=== PATIENT | male | born 1955 | race Caucasian/White ===

== ENCOUNTER 2022-10-04 10:14 | Emergency (ER) | payer MEDICARE, MEDICAID, SELFPAY ==
[2022-10-04 10:33] VITALS: BP 145/73; PULSE 84; RESP 16; TEMP 36.9; O2SAT 100; BMI 18.3
--- NOTE | 2022-10-04 10:48 | ED.GENADULT ---
HPI - General Adult General Time Seen by Provider: 10:48 Date Seen: 10/04/22 Chief complaint: Lower Extremity Swelling Stated complaint: L calf pain, possible blood clot Time Seen by Provider: 10/04/22 10:48 Source: patient, RN notes reviewed and old records reviewed Mode of arrival: ambulatory Limitations: no limitations History of Present Illness HPI narrative: Patient is a 66-year-old male with concern of possible blood clot in his leg. He he had left SFA stent 03/07/2022 due to PAD. He reportedly was admitted 09/03/2022 with 2 days prior of increased left leg pain and numbness that was worsening. He had stopped his Plavix for couple months prior to that. He had a venous Doppler in the ER that was negative, ultrasound showed long segment SFA stent occlusion. He was put on IV heparin, vascular surgery was consulted who recommended IR guided thrombolysis which she had on 09/03 with catheter removal 09/04. He was loaded with Plavix 09/05 and transition to 75 mg daily worked up for iron deficiency anemia which she had been noncompliant outpatient. His admission hemoglobin was 9, platelets 137. Was complaining of some chronic GI symptoms. He did get an EGD on September 05 showing hiatal hernia but otherwise normal. He is yet to get an outpatient colonoscopy. He has chronic tobacco use, alcohol use. He is maintained on 81 mg aspirin and is taking is 75 mg Plavix. He also takes Crestor 40 mg daily. He notes he had a cramp couple nights ago. After that his calf was hurting, feels like he is more swollen in this leg. He denies any trauma. He continues smoking. Denies any difficulty breathing, no chest pain, no fevers chills. He absolutely has no numbness tingling or type of pain like he had with the arterial stent occlusion. He is worried that the stent possibly occluded again. Related Data Home Medications Medication Instructions Recorded Confirmed aspirin 81 mg chewable tablet tab PO 10/04/22 clopidogrel 75 mg tablet 75 mg PO DAILY 10/04/22 10/04/22 famotidine 20 mg tablet 20 mg PO DAILY 10/04/22 10/04/22 ferrous sulfate 325 mg (65 mg PO 10/04/22 iron) tablet (FeroSul) rosuvastatin 40 mg tablet 40 mg PO QPM 10/04/22 10/04/22 Allergies Allergy/AdvReac Type Severity Reaction Status Date / Time No Known Drug Allergies Allergy Verified 10/04/22 10:36 Review of Systems Status of ROS: Reports: 6 or more systems reviewed and unremarkable except as noted in History and below Exam Const: Vital Signs, click to edit/add: Vital Signs - 24 hr 10/04/22 10:33 Temperature 98.4 F Pulse Rate [Left P ulse Oximeter] 84 Respiratory Rate 16 Blood Pressure [Le ft Upper Arm] 145/73 H Pulse Oximetry 100 Oxygen Delivery Me thod Room Air Patient watched ambulating back into his room, normal gait. Documenting provider has reviewed patient's vital signs: yes Common normals: no apparent distress, oriented x3, no limitations and alert General appearance: frail appearing Nutritional appearance: thin HENMT: Common normals: normocephalic, head/scalp atraumatic and hearing grossly normal bilaterally Head and scalp: normocephalic and atraumatic Eye: Common normals: PERRL, EOMs intact bilaterally and conjunctivae normal Conjunctiva: conjunctiva(e) normal Pupil: PERRL Neck & C-Spine: Common normals: full ROM, no lymphadenopathy, supple and no meningeal signs Resp: Common normals: normal respiratory effort, no retractions, no use of accessory muscles and clear to auscultation bilaterally Auscultation: clear to auscultation bilaterally Cardio: Common normals: regular rate, regular rhythm, S1 normal heart sound, S2 normal heart sound, no gallops, no clicks and no murmurs Rate: regular rate Rhythm: regular rhythm Heart sounds: S1 normal and S2 normal GI: Common normals: Normal to inspection, nondistended, normoactive bowel sounds present, soft to palpation, non-tender, no hepatosplenomegaly and no masses Palpation: soft and no hepatosplenomegaly Extremity: Other: Socks were taken off both of his feet. His feet are symmetrically warm. He has faint dorsalis pedis pulses that are symmetric. He has normal light touch sensation in both of his extremities. He does have some mild swelling in this left lower extremity, maybe trace pretibial pitting edema. There is an ecchymotic area around the proximal portion of his distal 3rd of the tibia and fibula. It does not extend circumferentially, there is an area along the anterior lateral tibia where there is no bruising. Above this there may be just a little erythema that seems diffuse throughout the tissues. He complains that his calf hurts while in I press on it. There is no joint line tenderness, no popliteal fossa mass. Neuro: Common normals: oriented x3 Sensorium/orientation: alert Meningeal signs: no meningeal signs Course Course Hospital Course: Will obtain imaging of his venous and arterial systems in this left lower extremity. I am doubtful that he has a arterial blockage as his leg is nice and warm, he has none of the numbness tingling. I am hopeful that he does not have a DVT but there is some tenderness and complaints of pain in his left posterior calf. Possibilities also include hematoma, trauma that he might not remember given his alcohol use, doubt cellulitis from my clinical exam. Obtain labs and venous and arterial ultrasounds. Reevaluation(s) Reevaluation #1: Reviewed with patient that we are awaiting the radiology over read. The preliminary per the drop machine operator is no DVT, patent arteries. I did subsequently add on an x-ray of his tib-fib. I wonder if he just had some tearing of a vessel when he had the muscle cramp and has some bruising/hematoma. You certainly can see bruising around the proximal portion of the distal 3rd of his tib-fib/leg. He is having no numbness tingling like he had when he had the blockage of his graft before. Time: 12:20 Reevaluation #2: Reviewed with patient and his sister via phone who had to leave normal workup. You definitely can see bruising on his leg, not sure if he just had a little trauma when he had a muscle cramp and jumped up, he does have friable vessels; he also could have bumped his leg causing this trauma. In any event, no evidence any thrombotic vascular issues, occlusions at this time. I find no evidence for cellulitis. I recommend ongoing conservative management. His sister states that they have a follow-up appointment on Thursday already scheduled, I would like them to keep this so that is leg could be looked at, hopefully they can discuss smoking cessation there is well. Time: 12:53 Vital Signs Vital signs: Initial Vital Signs Temperature 98.4 F 10/04/22 10:33 Temperature Source Temporal Artery Scan 10/04/22 10:33 Pulse Rate 84 10/04/22 10:33 Pulse Rhythm Regular 10/04/22 10:33 Pulse Strength 3+ Normal 10/04/22 10:33 Respiratory Rate 16 10/04/22 10:33 Blood Pressure 145/73 H 10/04/22 10:33 Blood Pressure Mean 97 10/04/22 10:33 Blood Pressure Position Sitting 10/04/22 10:33 Pulse Oximetry 100 10/04/22 10:33 Oxygen Delivery Method Room Air 10/04/22 10:33 Vital Signs Temperature 98.4 F 10/04/22 10:33 Pulse Rate 84 10/04/22 10:33 Respiratory Rate 16 10/04/22 10:33 Blood Pressure 145/73 H 10/04/22 10:33 Pulse Oximetry 100 10/04/22 10:33 Oxygen Delivery Method Room Air 10/04/22 10:33 Temperature 98.4 F 10/04/22 10:33 Pulse Rate 84 10/04/22 10:33 Respiratory Rate 16 10/04/22 10:33 Blood Pressure 145/73 H 10/04/22 10:33 Pulse Oximetry 100 10/04/22 10:33 Oxygen Delivery Method Room Air 10/04/22 10:33 Medical Decision Making Lab Data Lab results reviewed: Yes I reviewed the patient's lab results Labs: Lab Results 10/04/22 Range/Units 11:25 WBC 3.16 L (4.50-11.00) K/uL RBC 4.74 (4.30-5.90) m/uL Hgb 10.9 L (13.5-17.5) gm/dL Hct 34.8 L (37.0-53.0) % MCV 73 L (80-100) fL MCH 23 L (26-34) pg MCHC 31 L (32-36) gm/dL RDW Coeff of Pepe 28.3 H (11.5-15.5) % Plt Count 133 L (140-440) K/uL Neut % (Auto) 60.9 (42.0-72.0) % Lymph % (Auto) 29.7 (20-44) % [place] % (Auto) 7.6 (0.0-11.0) % Eos % (Auto) 0.9 (0.0-7.0) % Baso % (Auto) 0.6 (0.0-3.0) % Neut # (Auto) 1.90 (1.7-7.0) K/uL Lymph # (Auto) 0.90 (0.90-2.90) K/uL [place] # (Auto) 0.20 (0.00-0.90) K/UL Eos # (Auto) 0.00 (0.00-0.50) K/uL Baso # (Auto) 0.00 (0.00-0.30) K/uL Diff Slide Review Acceptable Review (Acceptable) INR 0.97 (0.91-1.10) APTT 36 H (23-33) Seconds Sodium 131 L (135-149) mmol/L Potassium 4.4 (3.6-5.1) mmol/L Chloride 100 (96-114) mmol/L Carbon Dioxide 26 (20-32) mmol/L BUN 13 (7-30) mg/dL Creatinine 0.9 (0.5-1.5) mg/dL Estimated Creat Clear 50.59 Estimated GFR 94 ml/min Glucose 111 (60-115) mg/dL Calcium 8.5 (8.4-10.6) mg/dL Total Bilirubin 0.8 (0.1-1.5) mg/dL AST 34 (12-35) U/L ALT 29 (4-50) U/L Alkaline Phosphatase 117 (40-150) U/L Total Protein 7.5 (6.0-8.3) g/dL Albumin 4.0 (3.3-5.0) g/dL Imaging Data Venous US: Attestation: I have reviewed the pertinent imaging results. My impression: Note the drop machine operator was able to tell me that the patient had no pain doing these ultrasounds. When she was augmenting pressing on his calf for the venous ultrasound, he had absolutely no pain. Radiologist's impression: Patient: BRISA RAI Facility:?[facility] Patient ID:?[id number] Site Patient ID:?[id number]. Site :?[id number] Study:?US Extremity Left LEV LT-10/04/2022 12:09:48 PM Ordering Physician:?Graciela Quiroga Final Report: INDICATION: Pain and swelling left lower extremity TECHNIQUE: A compression venous ultrasound exam was performed of the left lower extremity using montoya-scale imaging, color Doppler and spectral Doppler analysis. FINDINGS: Sonographic imaging of the left lower extremity demonstrates normal compressibility and color Doppler venous blood flow within the common femoral vein, deep femoral vein, and the proximal greater saphenous vein. Within the thigh, the femoral vein is patent and compressible. At a lower level, the popliteal and posterior tibial veins also show normal compressibility and color Doppler venous blood flow. Limited imaging of the contralateral groin demonstrates a normal spectral waveform and color Doppler venous blood flow within the right common femoral vein. IMPRESSION: Normal venous ultrasound exam. No evidence of deep vein thrombosis within the left lower extremity. Dictated by Reina Lundberg MD @ 10/04/2022 12:22:09 PM (Electronic Signature) Ultrasound arterial: Attestation: I have reviewed the pertinent imaging results. Radiologist's impression: Patient: BRISA RAI Facility:?[facility] Patient ID:?[id number] Site Patient ID:?[id number]. Site :?[id number] Study:?US Extremity Left LE LT ARTERIAL-10/04/2022 12:11:13 PM Ordering Physician:Abrahan Quiroga Final Report: INDICATION: Increasing pain and swelling left lower extremity; no DVT; arterial stents; possible issues with the stent. Comparison : None. TECHNIQUE: Duplex ultrasound evaluation arterial system left lower extremity; color Doppler duplex assessment. FINDINGS: Multiphasic flow identified in the arterial system left lower extremity. Stent identified involving the proximal and mid superficial femoral artery which is patent. Biphasic waveforms identified in the run-off vessels left lower extremity. IMPRESSION: 1. Patent stent left superficial femoral artery. 2. Biphasic flow throughout the arterial system including the run-off vessels. 3. No focal significant narrowing identified. Dictated by Reina Lundberg MD @ 10/04/2022 12:38:13 PM (Electronic Signature) Left tib-fib x-ray: Attestation: I have reviewed the pertinent imaging results. My impression: No acute fracture on my preliminary review, can see arterial calcification. Radiologist's impression: Patient: BRISA RAI Facility:?[facility] Patient ID:?[id number] Site Patient ID:?[id number]. Site :?[id number] Study:?US Extremity Left LE LT ARTERIAL-10/04/2022 12:11:13 PM Ordering Physician:Abrahan Quiroga Final Report: INDICATION: Increasing pain and swelling left lower extremity; no DVT; arterial stents; possible issues with the stent. Comparison : None. TECHNIQUE: Duplex ultrasound evaluation arterial system left lower extremity; color Doppler duplex assessment. FINDINGS: Multiphasic flow identified in the arterial system left lower extremity. Stent identified involving the proximal and mid superficial femoral artery which is patent. Biphasic waveforms identified in the run-off vessels left lower extremity. IMPRESSION: 1. Patent stent left superficial femoral artery. 2. Biphasic flow throughout the arterial system including the run-off vessels. 3. No focal significant narrowing identified. Dictated by Reina Lundberg MD @ 10/04/2022 12:38:13 PM (Electronic Signature) Critical Care Time Critical Care Time Critical Care Time: No Discharge Plan Discharge Clinical Impression: PAD (peripheral artery disease), Ecchymosis Patient Disposition: Home, Self-Care Condition: Stable Instructions: Peripheral Artery Disease (ED), Ecchymosis (ED) Additional Instructions: Recommend elevating this leg while you are resting. Can use Tylenol per bottle directions if needed for any discomfort. Please keep clinic follow-up on Thursday for recheck, see if they would be willing to discuss smoking cessation at that visit as well. If you notice significant increase of bruising area, swelling of this leg, any return of any numbness tingling or coolness in this extremity, do need to seek emergent re-evaluation. Activity Level: Activity as Tolerated Prescriptions: No Action clopidogrel 75 mg tablet 75 mg PO DAILY famotidine 20 mg tablet 20 mg PO DAILY ferrous sulfate [FeroSul] 325 mg (65 mg iron) tablet PO aspirin 81 mg tablet,chewable PO rosuvastatin 40 mg tablet 40 mg PO QPM Follow Up/Referrals: Fly Drummond MD [Primary Care Provider] - Stand Alone Forms: [employer] Info Instructions
--- NOTE | 2022-10-04 10:53 | CRLHL7_ITS ---
For Patients: As a result of the Century Cures Act, medical imaging exams and procedure reports are released immediately into your electronic medical record. You may view this report before your referring provider. If you have questions, please contact your health care provider. INDICATION: Pain and swelling left lower extremity TECHNIQUE: A compression venous ultrasound exam was performed of the left lower extremity using montoya-scale imaging, color Doppler and spectral Doppler analysis. FINDINGS: Sonographic imaging of the left lower extremity demonstrates normal compressibility and color Doppler venous blood flow within the common femoral vein, deep femoral vein, and the proximal greater saphenous vein. Within the thigh, the femoral vein is patent and compressible. At a lower level, the popliteal and posterior tibial veins also show normal compressibility and color Doppler venous blood flow. Limited imaging of the contralateral groin demonstrates a normal spectral waveform and color Doppler venous blood flow within the right common femoral vein. IMPRESSION: Normal venous ultrasound exam. No evidence of deep vein thrombosis within the left lower extremity. Dictated by Reina Lundberg MD @ 10/04/2022 12:22:09 PM (Electronically Signed)
--- NOTE | 2022-10-04 10:53 | CRLHL7_ITS ---
For Patients: As a result of the Century Cures Act, medical imaging exams and procedure reports are released immediately into your electronic medical record. You may view this report before your referring provider. If you have questions, please contact your health care provider. INDICATION: Increasing pain and swelling left lower extremity; no DVT; arterial stents; possible issues with the stent. Comparison : None. TECHNIQUE: Duplex ultrasound evaluation arterial system left lower extremity; color Doppler duplex assessment. FINDINGS: Multiphasic flow identified in the arterial system left lower extremity. Stent identified involving the proximal and mid superficial femoral artery which is patent. Biphasic waveforms identified in the run-off vessels left lower extremity. IMPRESSION: 1. Patent stent left superficial femoral artery. 2. Biphasic flow throughout the arterial system including the run-off vessels. 3. No focal significant narrowing identified. Dictated by Reina Lundberg MD @ 10/04/2022 12:38:13 PM (Electronically Signed)
[2022-10-04 11:28] LABS: Basophils Percent Auto 0.6 % (0.0-3.0); Eosinophils Percent Auto 0.9 % (0.0-7.0); Hematocrit 34.8 % (37.0-53.0); Hemoglobin* 10.9 gm/dL (13.5-17.5); Immature Granulocytes Pct Auto 0.3 %; Lymphocytes Percent Auto 29.7 % (20-44); Mean Corpuscular HGB Conc 31 gm/dL (32-36); Mean Corpuscular Hemoglobin 23 pg (26-34); Mean Corpuscular Volume 73 fL (80-100); Monocytes Percent Auto 7.6 % (0.0-11.0); Neutrophils Percent Auto 60.9 % (42.0-72.0); Platelet Count* 133 K/uL (140-440); RDW Coefficient of Variation % 28.3 % (11.5-15.5); Red Blood Count 4.74 m/uL (4.30-5.90); White Blood Count* 3.16 K/uL (4.50-11.00)
[2022-10-04 11:30] LABS: Slide Review Reflex Yes
[2022-10-04 11:46] LABS: Chloride* 100 mmol/L (96-114); Potassium* 4.4 mmol/L (3.6-5.1); Sodium* 131 mmol/L (135-149)
[2022-10-04 11:47] LABS: INR 0.97 (0.91-1.10); Partial Thromboplastin Time* 36 Seconds (23-33); Prothrombin Time 13.5 Seconds
[2022-10-04 11:48] LABS: Aspartate Amino Transferase* 34 U/L (12-35); Bilirubin Total* 0.8 mg/dL (0.1-1.5); Carbon Dioxide* 26 mmol/L (20-32); Creatinine* 0.9 mg/dL (0.5-1.5); Est. Creatinine Clearance* 50.59; Estimated Glomerular Filt Rate 94 ml/min; Slide Review Acceptable Review (Acceptable)
[2022-10-04 11:49] LABS: Alanine Aminotransferase* 29 U/L (4-50); Alkaline Phosphatase* 117 U/L (40-150); Blood Urea Nitrogen* 13 mg/dL (7-30); Calcium* 8.5 mg/dL (8.4-10.6); Glucose* 111 mg/dL (60-115); Total Protein* 7.5 g/dL (6.0-8.3)
--- NOTE | 2022-10-04 11:55 | CRLHL7_ITS ---
For Patients: As a result of the Cures Act, medical imaging exams and procedure reports are released immediately into your electronic medical record. You may view this report before your referring provider. If you have questions, please contact your health care provider. Indication: Pain bruising Technique: Two views left tibia and fibula Comparison: No comparison Findings: Normal alignment. No acute fractures. Corticated ossific density adjacent to the fibula likely reflect sequela of old trauma. Vascular calcifications. Dictated by Madison Martínez MD @ 10/04/2022 12:47:16 PM (Electronically Signed)
== END 2022-10-04 13:14 | disposition home or self-care (01) ==
PROVIDERS: Emergency Provider Family Medicine; PCP Family Medicine
DX: I73.9 Peripheral vascular disease, unspecified (principal); R58 Hemorrhage, not elsewhere classified
CPT/HCPCS: 36415; 73590; 80053; 85025; 85610; 85730; 93926; 93971; 99284; 99285

== ENCOUNTER 2022-10-21 13:06 | Emergency (ER) | payer MEDICARE, MEDICAID, SELFPAY ==
[2022-10-21 13:10] VITALS: BP 101/78; PULSE 97; RESP 18; TEMP 36.6; O2SAT 100
--- NOTE | 2022-10-21 14:21 | CRLHL7_ITS ---
For Patients: As a result of the Century Cures Act, medical imaging exams and procedure reports are released immediately into your electronic medical record. You may view this report before your referring provider. If you have questions, please contact your health care provider. INDICATION: Left leg pain, swelling and bruising. TECHNIQUE: Ultrasound venous duplex lower left extremity. Compression venous exam was performed using montoya-scale, color Doppler, and spectral Doppler analysis. COMPARISON: Left lower extremity venous ultrasound 10/04/2022 FINDINGS: Sonographic imaging demonstrates the left common femoral, deep femoral, superficial femoral, popliteal, posterior tibial and greater saphenous and the contralateral right common femoral veins to be fully compressible with normal color Doppler blood flow. Arterial stent at the left common femoral and femoral artery. Subcutaneous edema without focal fluid collection. IMPRESSION: Normal left lower extremity venous ultrasound, no sign of deep venous thrombosis. Dictated by Darin Coyle MD @ 10/21/2022 3:33:17 PM (Electronically Signed)
[2022-10-21 14:50] LABS: Basophils Absolute Auto 0.03 K/uL (0.00-0.30); Basophils Percent Auto 0.5 % (0.0-3.0); Eosinophils Absolute Auto 0.02 K/uL (0.00-0.50); Eosinophils Percent Auto 0.4 % (0.0-7.0); Hematocrit 30.5 % (37.0-53.0); Hemoglobin* 9.6 gm/dL (13.5-17.5); Immature Granulocytes Abs Auto 0.01 K/uL (0.00-0.30); Immature Granulocytes Pct Auto 0.2 %; Lymphocytes Percent Auto 15.1 % (20-44); Mean Corpuscular HGB Conc 32 gm/dL (32-36); Mean Corpuscular Hemoglobin 25 pg (26-34); Mean Corpuscular Volume 79 fL (80-100); Monocytes Percent Auto 5.5 % (0.0-11.0); Neutrophils Percent Auto 78.3 % (42.0-72.0); Platelet Count* 235 K/uL (140-440); RDW Coefficient of Variation % 27.8 % (11.5-15.5); Red Blood Count 3.84 m/uL (4.30-5.90)
[2022-10-21 14:51] LABS: Slide Review Reflex No
[2022-10-21 15:04] LABS: Chloride* 102 mmol/L (96-114)
[2022-10-21 15:05] LABS: Potassium* 4.8 mmol/L (3.6-5.1); Sodium* 134 mmol/L (135-149)
[2022-10-21 15:07] LABS: Est. Creatinine Clearance* 55.19; Estimated Glomerular Filt Rate 82 ml/min
[2022-10-21 15:08] LABS: Blood Urea Nitrogen* 22 mg/dL (7-30); Calcium* 8.9 mg/dL (8.4-10.6); Carbon Dioxide* 23 mmol/L (20-32); Glucose* 96 mg/dL (60-115)
[2022-10-21 15:34] LABS: INR 1.04 (0.91-1.10); Prothrombin Time 14.2 Seconds
[2022-10-21 15:36] LABS: Partial Thromboplastin Time* 34 Seconds (23-33)
--- NOTE | 2022-10-21 16:17 | ED.LOWEXIN ---
HPI - Extremity Injury (Lower) General Date Seen: 10/21/22 Chief Complaint: Extremity Pain/Injury, Lower Stated Complaint: Leg Pain Time Seen by Provider: 10/21/22 14:16 Source: patient Mode of arrival: ambulatory Limitations: no limitations History of Present Illness HPI Narrative: Patient is a 66-year-old gentleman who presents here by EMS goes he could not find a ride to the emergency room he has had pain in his left lower extremity, is after he has been seen, twice for this. Once [facility], and once here in the emergency room. He has been referred to physical therapy, take some Tylenol at home for the discomfort he says his leg is black and blue, and there is pain in his leg. Does have a previous history of an arterial stent in his left leg. Denies a significant injury, Onset (ago): week(s) Related Data Home Medications Medication Instructions Recorded Confirmed aspirin 81 mg chewable tablet tab PO 10/04/22 clopidogrel 75 mg tablet 75 mg PO DAILY 10/04/22 10/04/22 famotidine 20 mg tablet 20 mg PO DAILY 10/04/22 10/04/22 ferrous sulfate 325 mg (65 mg PO 10/04/22 iron) tablet (FeroSul) rosuvastatin 40 mg tablet 40 mg PO QPM 10/04/22 10/04/22 Allergies Allergy/AdvReac Type Severity Reaction Status Date / Time No Known Drug Allergies Allergy Verified 10/04/22 10:36 Review of Systems Status of ROS: Reports: 10 or more systems reviewed and unremarkable except as noted in History and below PFSH PFSH Social History Smoking Status: Current every day smoker What tobacco products do you use: cigarettes Smoking packs per day: 1 Smoking cigarettes per day: 20.0 Years smoked: 50 Smoking pack-years: 50.00 Do you use any of these nicotine containing products: None Second hand tobacco smoke exposure: No How often do you have a drink containing alcohol: never How often do you have six or more drinks on one occasion: Never AUDIT-C Alcohol total score: 0 Non-prescribed substance use: denies use service: No Exam Narrative: Exam Narrative: Patient is seen and stabilization room 2, no evidence of he is able to sit up for me, and stand. There is bruising that runs from mid hamstrings region down through his popliteal fossa into his calf, any sort of leg extension causes some more pain than flexion. No swelling is noted of the knee itself. There is no effusion. DP and posterior tibial pulses normal, no specific hematomas noted. Const: Vital Signs, click to edit/add: Vital Signs - 24 hr 10/21/22 13:10 Temperature 97.9 F Pulse Rate [Right Pulse Oximeter] 97 Respiratory Rate 18 Blood Pressure [Ri ght Upper Arm] 101/78 Pulse Oximetry 100 Oxygen Delivery Me thod Room Air Course Course Hospital Course: Patient is seen and assessed, there is no evidence on ultrasound of any blood clot, I do believe that he has a tear likely to the hamstrings muscle given them the bruising, the goes up and down his leg. This is seen on the examination portion. Tylenol and heat would be appropriate in getting the blood to resolve. Vital Signs Vital signs: Initial Vital Signs Temperature 97.9 F 10/21/22 13:10 Temperature Source Temporal Artery Scan 10/21/22 13:10 Pulse Rate 97 10/21/22 13:10 Respiratory Rate 18 10/21/22 13:10 Blood Pressure 101/78 10/21/22 13:10 Blood Pressure Mean 85 10/21/22 13:10 Blood Pressure Position Sitting 10/21/22 13:10 Pulse Oximetry 100 10/21/22 13:10 Oxygen Delivery Method Room Air 10/21/22 13:10 Vital Signs Temperature 97.9 F 10/21/22 13:10 Pulse Rate 97 10/21/22 13:10 Respiratory Rate 18 10/21/22 13:10 Blood Pressure 101/78 10/21/22 13:10 Pulse Oximetry 100 10/21/22 13:10 Oxygen Delivery Method Room Air 10/21/22 13:10 Temperature 97.9 F 10/21/22 13:10 Pulse Rate 97 10/21/22 13:10 Respiratory Rate 18 10/21/22 13:10 Blood Pressure 101/78 10/21/22 13:10 Pulse Oximetry 100 10/21/22 13:10 Oxygen Delivery Method Room Air 10/21/22 13:10 MDM - Extremity Injury (Lower) Medical Records Attestation: I reviewed the patient's medical records. Lab Data Attestation: I reviewed the patient's lab results. Labs: Lab Results 10/21/22 Range/Units 14:43 WBC 5.50 (4.50-11.00) K/uL RBC 3.84 L (4.30-5.90) m/uL Hgb 9.6 L (13.5-17.5) gm/dL Hct 30.5 L (37.0-53.0) % MCV 79 L (80-100) fL MCH 25 L (26-34) pg MCHC 32 (32-36) gm/dL RDW Coeff of Pepe 27.8 H (11.5-15.5) % Plt Count 235 (140-440) K/uL Neut % (Auto) 78.3 H (42.0-72.0) % Lymph % (Auto) 15.1 L (20-44) % [place] % (Auto) 5.5 (0.0-11.0) % Eos % (Auto) 0.4 (0.0-7.0) % Baso % (Auto) 0.5 (0.0-3.0) % Neut # (Auto) 4.30 (1.7-7.0) K/uL Lymph # (Auto) 0.80 L (0.90-2.90) K/uL [place] # (Auto) 0.30 (0.00-0.90) K/UL Eos # (Auto) 0.02 (0.00-0.50) K/uL Baso # (Auto) 0.03 (0.00-0.30) K/uL INR 1.04 (0.91-1.10) APTT 34 H (23-33) Seconds Sodium 134 L (135-149) mmol/L Potassium 4.8 (3.6-5.1) mmol/L Chloride 102 (96-114) mmol/L Carbon Dioxide 23 (20-32) mmol/L BUN 22 (7-30) mg/dL Creatinine 1.0 (0.5-1.5) mg/dL Estimated Creat Clear 55.19 Estimated GFR 82 ml/min Glucose 96 (60-115) mg/dL Calcium 8.9 (8.4-10.6) mg/dL Discharge Plan Discharge Clinical Impression: Partial hamstring tear, Ecchymosis Condition: Stable Instructions: Hamstring Injury (ED), Ecchymosis (ED) Additional Instructions: Home rest Tylenol, heat is also appropriate, follow-up with primary care for Prescriptions: No Action clopidogrel 75 mg tablet 75 mg PO DAILY famotidine 20 mg tablet 20 mg PO DAILY ferrous sulfate [FeroSul] 325 mg (65 mg iron) tablet PO aspirin 81 mg tablet,chewable PO rosuvastatin 40 mg tablet 40 mg PO QPM Follow Up/Referrals: Fly Drummond MD [Primary Care Provider] - Stand Alone Forms: [employer] Info Instructions
[2022-10-21] MEDS: ACETAMINOPHEN 500 MG TABLET 1000 MG PO (16:22)
[2022-10-21 17:20] LABS: SARS PCR* Negative SARS-CoV-2 (Negative)
== END 2022-10-21 17:06 | disposition home or self-care (01) ==
PROVIDERS: Emergency Provider Family Medicine; PCP Family Medicine
DX: S76.302A Unspecified injury of muscle, fascia and tendon of the posterior muscle group at thigh level, left thigh, initial encounter (principal)
CPT/HCPCS: 36415; 80048; 85025; 85610; 85730; 87635; 93971; 99283; 99284; A9270

== ENCOUNTER 2023-02-23 09:45 | Outpatient (RCR) | payer MEDICARE, MEDICAID, SELFPAY | END 2023-05-05 14:09 | disposition home or self-care (01) | PROVIDERS: PCP Family Medicine; Visit Provider Family Medicine | DX: S86.112A Strain of other muscle(s) and tendon(s) of posterior muscle group at lower leg level, left leg, initial encounter (principal); Z51.89 Encounter for other specified aftercare | CPT/HCPCS: 97110; 97140; 97161; 97530 ==

== ENCOUNTER 2023-04-24 21:36 | Outpatient (CLI) | payer MEDICARE, MEDICAID, SELFPAY | END 2023-04-24 21:37 | disposition home or self-care (01) | LOC: AMB 04-28 18:21 | PROVIDERS: PCP Family Medicine; Visit Provider Internal Medicine | DX: R06.02 Shortness of breath (principal) | CPT/HCPCS: A0425; A0427 ==

== ENCOUNTER 2023-04-24 22:06 | Inpatient (IN) | payer MEDICARE, MEDICAID, SELFPAY ==
[2023-04-24] VITALS (18 sets, daily range): BP systolic 65–154; BP diastolic 39–142; PULSE 100–106; RESP 40; TEMP 35.6; BMI 18.9
--- NOTE | 2023-04-24 22:08 | CRLHL7_ITS ---
For Patients: As a result of the Century Cures Act, medical imaging exams and procedure reports are released immediately into your electronic medical record. You may view this report before your referring provider. If you have questions, please contact your health care provider. INDICATION: Shortness of breath. TECHNIQUE: Chest 1 view(s) COMPARISON: None. FINDINGS: Cardiomediastinal silhouette and pulmonary vasculature are normal. No focal consolidation. No layering pleural effusion. No pneumothorax. No acute chest wall abnormality. IMPRESSION: No focal consolidation. Dictated by Ashleigh Cisneros MD @ 04/24/2023 11:28:20 PM (Electronically Signed)
[2023-04-24 22:35] LABS: Troponin, Point-of-Care* 0.01 ng/ml (0.01-0.04)
[2023-04-24 22:43] LABS: Basophils Absolute Auto 0.03 K/uL (0.00-0.30); Basophils Percent Auto 0.5 % (0.0-3.0); Hematocrit 19.9 % (37.0-53.0); Immature Granulocytes Abs Auto 0.11 K/uL (0.00-0.30); Lymphocytes Absolute Auto 1.71 K/uL (0.90-2.90); Lymphocytes Percent Auto 30.5 % (20-44); Mean Corpuscular HGB Conc 26 gm/dL (32-36); Mean Corpuscular Hemoglobin 24 pg (26-34); Mean Corpuscular Volume 94 fL (80-100); Monocytes Percent Auto 4.5 % (0.0-11.0); Neutrophils Absolute Auto 3.51 K/uL (1.7-7.0); Neutrophils Percent Auto 62.5 % (42.0-72.0); Platelet Count* 253 K/uL (140-440); RDW Coefficient of Variation % 19.4 % (11.5-15.5); Red Blood Count 2.11 m/uL (4.30-5.90); White Blood Count* 5.61 K/uL (4.50-11.00)
--- NOTE | 2023-04-24 22:45 | ED_ITS ---
HPI - General Adult General Chief complaint: Shortness of Breath/Dyspnea Stated complaint: shortness of breath Time Seen by Provider: 04/24/23 22:18 History of Present Illness HPI narrative: Patient is a 67-year-old gentleman who was found in his bed today by his sister. Patient was surrounded by beer cans. Patient has not been eating or drinking. He has been having lower extremity pain for which he has been seeing his primary physician. Patient has not eaten for several weeks and a weighs less than 90 lb. He called his sister liz because he was more short of breath. Normally the door to his apartment is locked but he open the door for her liz and she found him very much short of breath and having a difficult time breathing. They called for EMS and he was transported to the hospital. He was somewhat agitated and did require 1 mg of Ativan in route. Upon arrival he is hypoxic tachycardic and tachypneic but afebrile. Patient is really not able to answer any questions but I did review the case with his sister who states he takes Plavix for lower extremity clots and statin for high cholesterol. Patient smokes marijuana regularly but no other drug use is noted other than chronic alcohol use. Related Data Home Medications Medication Instructions Recorded Confirmed aspirin 81 mg chewable tablet tab PO 10/04/22 clopidogrel 75 mg tablet 75 mg PO DAILY 10/04/22 10/04/22 famotidine 20 mg tablet 20 mg PO DAILY 10/04/22 10/04/22 ferrous sulfate 325 mg (65 mg PO 10/04/22 iron) tablet (FeroSul) rosuvastatin 40 mg tablet 40 mg PO QPM 10/04/22 10/04/22 Allergies Allergy/AdvReac Type Severity Reaction Status Date / Time No Known Drug Allergies Allergy Verified 04/25/23 01:17 Review of Systems Status of ROS: Reports: 10 or more systems reviewed and unremarkable except as noted in History and below PFSH PFS Medical History DVT (deep venous thrombosis) ?I82.409 - Acute embolism and thrombosis of unspecified deep veins of unspecified lower extremity (ICD-10) Social History Smoking Status: Current every day smoker What tobacco products do you use: cigarettes Smoking packs per day: 1 Smoking cigarettes per day: 20.0 Years smoked: 50 Smoking pack-years: 50.00 Do you use any of these nicotine containing products: None Second hand tobacco smoke exposure: No How often do you have a drink containing alcohol: never How often do you have six or more drinks on one occasion: Never AUDIT-C Alcohol total score: 0 Non-prescribed substance use: denies use service: No Exam Narrative: Exam Narrative: EXAM GENERAL: Patient appears cachectic and very ill THYROID: no thyroid nodules or thyromegaly. LYMPH: No supraclavicular or cervical lymphadenopathy. SKIN: Visible skin seen during exam normal or with benign process only. EXT: No dependent lower extremity pedal edema. HEART: Tachycardic with distant heart tones LUNGS: Scattered rhonchi bilaterally tachypnea noted. ABD: Soft, non tender, non distended. PSYCH: Good eye contact, speech is not pressured. Patient is incredibly cachectic and emaciated. I do not see any skin breakdown. Const: Vital Signs, click to edit/add: Vital Signs - 24 hr 04/24/23 22:33 04/24/23 22:36 04/24/23 22:37 Temperature 96.0 F L Pulse Rate Pulse Rate [Pulse Oximeter] 106 H Respiratory Rate 40 H Blood Pressure 101/70 77/50 L Blood Pressure [Ri ght Upper Arm] 77/50 L Pulse Oximetry Oxygen Delivery Me thod Oxygen Flow Rate 04/24/23 22:41 04/24/23 22:46 04/24/23 22:51 Temperature Pulse Rate Pulse Rate [Pulse Oximeter] Respiratory Rate Blood Pressure 84/54 L 87/69 L 93/53 L Blood Pressure [Ri ght Upper Arm] Pulse Oximetry Oxygen Delivery Me thod Oxygen Flow Rate 04/24/23 22:57 04/24/23 23:03 04/24/23 23:09 Temperature Pulse Rate 100 Pulse Rate [Pulse Oximeter] Respiratory Rate Blood Pressure 100/80 88/57 L Blood Pressure [Ri ght Upper Arm] Pulse Oximetry Oxygen Delivery Me thod Oxygen Flow Rate 04/24/23 23:12 04/24/23 23:18 04/24/23 23:32 Temperature Pulse Rate Pulse Rate [Pulse Oximeter] Respiratory Rate Blood Pressure 98/63 75/50 L 65/39 L Blood Pressure [Ri ght Upper Arm] Pulse Oximetry Oxygen Delivery Me thod Oxygen Flow Rate 04/24/23 23:35 04/24/23 23:37 04/24/23 23:43 Temperature Pulse Rate Pulse Rate [Pulse Oximeter] Respiratory Rate Blood Pressure 96/39 L 100/41 L 88/49 L Blood Pressure [Ri ght Upper Arm] Pulse Oximetry Oxygen Delivery Me thod Oxygen Flow Rate 04/24/23 23:47 04/24/23 23:49 04/24/23 23:53 Temperature Pulse Rate Pulse Rate [Pulse Oximeter] Respiratory Rate Blood Pressure 83/73 L 154/142 H Blood Pressure [Ri ght Upper Arm] Pulse Oximetry Oxygen Delivery Me thod Nasal Cannula Oxygen Flow Rate 4 04/24/23 23:58 04/25/23 00:01 04/25/23 00:01 Temperature Pulse Rate Pulse Rate [Pulse Oximeter] Respiratory Rate Blood Pressure 74/43 L 88/59 L 88/59 L Blood Pressure [Ri ght Upper Arm] Pulse Oximetry Oxygen Delivery Me thod Oxygen Flow Rate 04/25/23 00:01 04/25/23 00:01 04/25/23 00:11 Temperature Pulse Rate Pulse Rate [Pulse Oximeter] Respiratory Rate Blood Pressure 88/59 L 88/59 L 105/53 L Blood Pressure [Ri ght Upper Arm] Pulse Oximetry Oxygen Delivery Me thod Oxygen Flow Rate 04/25/23 00:20 04/25/23 00:34 04/25/23 00:36 Temperature Pulse Rate Pulse Rate [Pulse Oximeter] Respiratory Rate Blood Pressure 90/46 L 93/51 L 100/53 L Blood Pressure [Ri ght Upper Arm] Pulse Oximetry Oxygen Delivery Me thod Oxygen Flow Rate 04/25/23 00:40 04/25/23 00:52 04/25/23 01:13 Temperature Pulse Rate Pulse Rate [Pulse Oximeter] Respiratory Rate Blood Pressure 95/53 L 83/49 L 82/51 L Blood Pressure [Ri ght Upper Arm] Pulse Oximetry Oxygen Delivery Me thod Oxygen Flow Rate 04/25/23 01:25 04/25/23 01:30 04/25/23 01:32 Temperature Pulse Rate Pulse Rate [Pulse Oximeter] Respiratory Rate Blood Pressure 82/71 L Blood Pressure [Ri ght Upper Arm] Pulse Oximetry 91 87 L 84 L Oxygen Delivery Me thod Oxygen Flow Rate 04/25/23 01:41 04/25/23 01:45 04/25/23 01:51 Temperature Pulse Rate Pulse Rate [Pulse Oximeter] Respiratory Rate Blood Pressure 103/55 L 104/59 L Blood Pressure [Ri ght Upper Arm] Pulse Oximetry 81 L 83 L 81 L Oxygen Delivery Me thod Oxygen Flow Rate 04/25/23 02:01 04/25/23 02:07 04/25/23 02:11 Temperature 97.7 F Pulse Rate 95 Pulse Rate [Pulse Oximeter] Respiratory Rate 36 H Blood Pressure 84/54 L 84/54 L 91/53 L Blood Pressure [Ri ght Upper Arm] Pulse Oximetry Oxygen Delivery Me thod Oxygen Flow Rate 04/25/23 02:25 Temperature 97.8 F Pulse Rate 96 Pulse Rate [Pulse Oximeter] Respiratory Rate 30 H Blood Pressure 88/55 L Blood Pressure [Ri ght Upper Arm] Pulse Oximetry Oxygen Delivery Me thod Oxygen Flow Rate Course Course ED Course: Patient seen examined. Two large-bore IVs were placed. We did begin aggressive hydration through both IV sites. I did collect lactate CBC CMP amylase chest x- ray EKG troponin D-dimer. ABGs in blood gases. At this time we are trying to improve his oxygenation with high-flow oxygen which was limitedly successful. Currently we are on BiPAP and waiting laboratory studies. Vital Signs Vital signs: Initial Vital Signs Blood Pressure 101/70 04/24/23 22:33 Blood Pressure Mean 80 04/24/23 22:33 Vital Signs Blood Pressure 101/70 04/24/23 22:33 Temperature 97.8 F 04/25/23 02:25 Pulse Rate 96 04/25/23 02:25 Respiratory Rate 30 H 04/25/23 02:25 Blood Pressure 88/55 L 04/25/23 02:25 Pulse Oximetry 81 L 04/25/23 01:51 Oxygen Delivery Method Nasal Cannula 04/24/23 23:49 Oxygen Flow Rate 4 04/24/23 23:49 Medical Decision Making MDM Narrative Medical decision making narrative: Patient is a 59-year-old gentleman comes in short of breath. He has been locked away in his apartment until becoming symptomatic less short of breath tonight. His sister was able to get into the apartment and found his room closed with beer cans. Patient was unable to get up. Patient has been having chronic lower extremity pain and does have a history of DVT. Patient was brought in by EMS after receiving a small dose of Ativan in route. He was acutely hypoxic and we did place him on high-flow oxygen and were unable to obtain oxygen saturation. We began aggressive hydration. We did give him a nebulizer treatment were still unable to obtain oxygen saturation. I did get a blood gas back with patient on CPAP and it did appear the had a oxygen saturation of 100%. At that time we did decrease the oxygen back to 4 L per nasal cannula patient was breathing much more comfortably. Patient's lactate did come back at 20. Blood cultures had already been collected. Patient was given broad-spectrum antibiotics in the form of piperacillin tazobactam. Aggressive hydration was continued vital signs stabilized. Patient's hemoglobin did come back at 5.1. We did type and screen him and have made arrangements for 2 units of packed red blood cells. D-dimer came back greater than 6 CT of the chest PE protocol is now pending as the patient has a creatinine of 1.1. Hypocalcemia is noted at the patient is given 1 g of IV calcium gluconate. Patient is now breathing much more comfortably his blood pressure has stabilized. We have attempted to transfer the patient and no ICU available within a reasonable distance at this point. PE study negative for clot. Patient's 2nd lactate has come back at 14. Transfusion of packed red blood cells has begun. Reticulocyte count iron studies B12 and folate ordered on previously drawn blood. Case discussed with hospitalist patient will be admitted for further evaluation and treatment. Critical care time 90 minutes. Lab Data Labs: Lab Results 04/24/23 04/24/23 04/24/23 Range/Units 22:20 22:30 22:34 WBC 5.61 (4.50-11.00) K/uL RBC 2.11 L (4.30-5.90) m/uL Hgb 5.1 L* (13.5-17.5) gm/dL Hct 19.9 L (37.0-53.0) % MCV 94 (80-100) fL MCH 24 L (26-34) pg MCHC 26 L (32-36) gm/dL RDW Coeff of Pepe 19.4 H (11.5-15.5) % Plt Count 253 (140-440) K/uL Neut % (Auto) 62.5 (42.0-72.0) % Lymph % (Auto) 30.5 (20-44) % Saline % (Auto) 4.5 (0.0-11.0) % Eos % (Auto) 0.0 (0.0-7.0) % Baso % (Auto) 0.5 (0.0-3.0) % Neut # (Auto) 3.51 (1.7-7.0) K/uL Lymph # (Auto) 1.71 (0.90-2.90) K/uL Saline # (Auto) 0.30 (0.00-0.90) K/UL Eos # (Auto) 0.00 (0.00-0.50) K/uL Baso # (Auto) 0.03 (0.00-0.30) K/uL Abs Immat Gran (auto) 0.11 (0.00-0.30) K/uL Imm/Tot Granulo (auto) 2.0 % D-Dimer Quant (PE/DVT) 6.34 H (0.00-0.50) ug/ml ABG pH (7.35-7.45) ABG pCO2 (35-45) mmHG ABG pO2 (80-105) mmHG ABG O2 Saturation (92-100) % Carboxyhemoglobin (0.0-5.0) % Sodium (135-149) mmol/L Potassium (3.6-5.1) mmol/L Chloride (96-114) mmol/L Carbon Dioxide (20-32) mmol/L Anion Gap (7-15) mEq/L BUN (7-30) mg/dL Creatinine (0.5-1.5) mg/dL Estimated Creat Clear Estimated GFR ml/min Glucose (60-115) mg/dL Lactate 20.0 H* (0.5-1.9) mmol/L Calcium (8.4-10.6) mg/dL Total Bilirubin (0.1-1.5) mg/dL AST (12-35) U/L ALT (4-50) U/L Alkaline Phosphatase (40-150) U/L Troponin I 0.02 (0.01-0.04) ng/mL Total Protein (6.0-8.3) g/dL Albumin (3.3-5.0) g/dL Urine Color (Yellow) Urine Appearance (Clear) Urine pH (5.0-8.5) Ur Specific [place] (1.000-1.030) Urine Protein (Negative) Urine Glucose (UA) (Negative) Urine Ketones (Negative) Urine Blood (Negative) Urine Nitrite (Negative) Urine Bilirubin (Negative) Urine Urobilinogen (0.2-1.0) Ur Leukocyte Esterase (Negative) Urine RBC (0-2) Urine WBC (0-5) Ur Squamous Epith Cells (None-Few) Amorphous Sediment (None) Urine Bacteria (None) Urine Mucus (None) Urine Opiates Screen (Negative) Ur Oxycodone Screen (Negative) Urine Methadone Screen (Negative) Ur Propoxyphene Screen (Negative) Ur Barbiturates Screen (Negative) U Tricyclic Antidepress (Negative) Ur Phencyclidine Scrn (Negative) Ur Amphetamines Screen (Negative) U Methamphetamines Scrn (Negative) U Benzodiazepines Scrn (Negative) Urine Cocaine Screen (Negative) U Marijuana (THC) Screen (Negative) Ur Drug Screen Comment Ethyl Alcohol < 0.01 L (0.01-0.03) % SARS-CoV-2 (PCR) Negative SARS-CoV-2 (Negative) Influenza Type A (PCR) Negative PCR FLU A (Negative) Influenza Type B (PCR) Negative PCR FLU B (Negative) RSV (PCR) Negative PCR RSV (Negative) POC Troponin I 0.01 (0.01-0.04) ng/ml Blood Type Antibody Screen Crossmatch (AHG) 04/24/23 04/24/23 04/24/23 Range/Units 22:49 22:50 23:10 WBC (4.50-11.00) K/uL RBC (4.30-5.90) m/uL Hgb (13.5-17.5) gm/dL Hct (37.0-53.0) % MCV (80-100) fL MCH (26-34) pg MCHC (32-36) gm/dL RDW Coeff of Pepe (11.5-15.5) % Plt Count (140-440) K/uL Neut % (Auto) (42.0-72.0) % Lymph % (Auto) (20-44) % Saline % (Auto) (0.0-11.0) % Eos % (Auto) (0.0-7.0) % Baso % (Auto) (0.0-3.0) % Neut # (Auto) (1.7-7.0) K/uL Lymph # (Auto) (0.90-2.90) K/uL Saline # (Auto) (0.00-0.90) K/UL Eos # (Auto) (0.00-0.50) K/uL Baso # (Auto) (0.00-0.30) K/uL Abs Immat Gran (auto) (0.00-0.30) K/uL Imm/Tot Granulo (auto) % D-Dimer Quant (PE/DVT) (0.00-0.50) ug/ml ABG pH 7.15 L* (7.35-7.45) ABG pCO2 < 15 L* (35-45) mmHG ABG pO2 169.0 H (80-105) mmHG ABG O2 Saturation > 100 H (92-100) % Carboxyhemoglobin 2.8 (0.0-5.0) % Sodium (135-149) mmol/L Potassium (3.6-5.1) mmol/L Chloride (96-114) mmol/L Carbon Dioxide (20-32) mmol/L Anion Gap (7-15) mEq/L BUN (7-30) mg/dL Creatinine (0.5-1.5) mg/dL Estimated Creat Clear Estimated GFR ml/min Glucose (60-115) mg/dL Lactate (0.5-1.9) mmol/L Calcium (8.4-10.6) mg/dL Total Bilirubin (0.1-1.5) mg/dL AST (12-35) U/L ALT (4-50) U/L Alkaline Phosphatase (40-150) U/L Troponin I (0.01-0.04) ng/mL Total Protein (6.0-8.3) g/dL Albumin (3.3-5.0) g/dL Urine Color [place] A (Yellow) Urine Appearance Slightly Cloudy A (Clear) Urine pH 5.5 (5.0-8.5) Ur Specific [place] >= 1.030 (1.000-1.030) Urine Protein 2+ A (Negative) Urine Glucose (UA) Negative (Negative) Urine Ketones Negative (Negative) Urine Blood 2+ A (Negative) Urine Nitrite Positive A (Negative) Urine Bilirubin 1+ A (Negative) Urine Urobilinogen 4.0 A (0.2-1.0) Ur Leukocyte Esterase Negative (Negative) Urine RBC 2-5 A (0-2) Urine WBC 2-5 (0-5) Ur Squamous Epith Cells Moderate A (None-Few) Amorphous Sediment Few A (None) Urine Bacteria Moderate A (None) Urine Mucus Many A (None) Urine Opiates Screen Negative (Negative) Ur Oxycodone Screen Negative (Negative) Urine Methadone Screen Negative (Negative) Ur Propoxyphene Screen Negative (Negative) Ur Barbiturates Screen Negative (Negative) U Tricyclic Antidepress Negative (Negative) Ur Phencyclidine Scrn Negative (Negative) Ur Amphetamines Screen Negative (Negative) U Methamphetamines Scrn Negative (Negative) U Benzodiazepines Scrn Negative (Negative) Urine Cocaine Screen Negative (Negative) U Marijuana (THC) Screen POSITIVE A (Negative) Ur Drug Screen Comment See Note Ethyl Alcohol (0.01-0.03) % SARS-CoV-2 (PCR) (Negative) Influenza Type A (PCR) (Negative) Influenza Type B (PCR) (Negative) RSV (PCR) (Negative) POC Troponin I (0.01-0.04) ng/ml Blood Type O Positive Antibody Screen NEGATIVE Crossmatch (AHG) See Detail 04/24/23 04/25/23 Range/Units 23:27 01:30 WBC (4.50-11.00) K/uL RBC (4.30-5.90) m/uL Hgb (13.5-17.5) gm/dL Hct (37.0-53.0) % MCV (80-100) fL MCH (26-34) pg MCHC (32-36) gm/dL RDW Coeff of Pepe (11.5-15.5) % Plt Count (140-440) K/uL Neut % (Auto) (42.0-72.0) % Lymph % (Auto) (20-44) % Saline % (Auto) (0.0-11.0) % Eos % (Auto) (0.0-7.0) % Baso % (Auto) (0.0-3.0) % Neut # (Auto) (1.7-7.0) K/uL Lymph # (Auto) (0.90-2.90) K/uL Saline # (Auto) (0.00-0.90) K/UL Eos # (Auto) (0.00-0.50) K/uL Baso # (Auto) (0.00-0.30) K/uL Abs Immat Gran (auto) (0.00-0.30) K/uL Imm/Tot Granulo (auto) % D-Dimer Quant (PE/DVT) (0.00-0.50) ug/ml ABG pH (7.35-7.45) ABG pCO2 (35-45) mmHG ABG pO2 (80-105) mmHG ABG O2 Saturation (92-100) % Carboxyhemoglobin (0.0-5.0) % Sodium 137 (135-149) mmol/L Potassium 4.5 (3.6-5.1) mmol/L Chloride 115 H (96-114) mmol/L Carbon Dioxide < 5 L* (20-32) mmol/L Anion Gap 17 H (7-15) mEq/L BUN 21 (7-30) mg/dL Creatinine 1.1 (0.5-1.5) mg/dL Estimated Creat Clear 41.24 Estimated GFR 73 ml/min Glucose 177 H (60-115) mg/dL Lactate 14.2 H* (0.5-1.9) mmol/L Calcium 7.2 L (8.4-10.6) mg/dL Total Bilirubin 1.4 (0.1-1.5) mg/dL AST 136 H (12-35) U/L ALT 33 (4-50) U/L Alkaline Phosphatase 112 (40-150) U/L Troponin I (0.01-0.04) ng/mL Total Protein 4.6 L (6.0-8.3) g/dL Albumin 2.1 L (3.3-5.0) g/dL Urine Color (Yellow) Urine Appearance (Clear) Urine pH (5.0-8.5) Ur Specific [place] (1.000-1.030) Urine Protein (Negative) Urine Glucose (UA) (Negative) Urine Ketones (Negative) Urine Blood (Negative) Urine Nitrite (Negative) Urine Bilirubin (Negative) Urine Urobilinogen (0.2-1.0) Ur Leukocyte Esterase (Negative) Urine RBC (0-2) Urine WBC (0-5) Ur Squamous Epith Cells (None-Few) Amorphous Sediment (None) Urine Bacteria (None) Urine Mucus (None) Urine Opiates Screen (Negative) Ur Oxycodone Screen (Negative) Urine Methadone Screen (Negative) Ur Propoxyphene Screen (Negative) Ur Barbiturates Screen (Negative) U Tricyclic Antidepress (Negative) Ur Phencyclidine Scrn (Negative) Ur Amphetamines Screen (Negative) U Methamphetamines Scrn (Negative) U Benzodiazepines Scrn (Negative) Urine Cocaine Screen (Negative) U Marijuana (THC) Screen (Negative) Ur Drug Screen Comment Ethyl Alcohol (0.01-0.03) % SARS-CoV-2 (PCR) (Negative) Influenza Type A (PCR) (Negative) Influenza Type B (PCR) (Negative) RSV (PCR) (Negative) POC Troponin I (0.01-0.04) ng/ml Blood Type Antibody Screen Crossmatch (AHG) Discharge Plan Discharge Clinical Impression: Anemia Patient Disposition: Admitted As Inpatient Condition: Guarded Activity Level: Other Discharge Diet: Other Prescriptions: No Action clopidogrel 75 mg tablet 75 mg PO DAILY famotidine 20 mg tablet 20 mg PO DAILY ferrous sulfate [FeroSul] 325 mg (65 mg iron) tablet PO aspirin 81 mg tablet,chewable PO rosuvastatin 40 mg tablet 40 mg PO QPM Follow Up/Referrals: Fly Drummond MD [Primary Care Provider] -
[2023-04-24 22:48] LABS: Hemoglobin* 5.1 gm/dL (13.5-17.5)
[2023-04-24 22:49] LABS: Slide Review Reflex No
[2023-04-24] MEDS: 0.9 % SODIUM CHLORIDE 250 ml IV (22:52)
[2023-04-24] MEDS: IPRAT-ALBUT 0.5-2.5 MG/3 ML NEB 1 NEB IH (22:52)
[2023-04-24] MEDS: 0.9 % SODIUM CHLORIDE 1000 ml 1,000 ML IV (22:52)
[2023-04-24 23:04] LABS: Carboxyhemoglobin* 2.8 % (0.0-5.0); Oxygen Saturation ABG > 100 % (92-100)
[2023-04-24 23:05] LABS: ABG PCO2 < 15 mmHG (35-45); pH ABG 7.15 (7.35-7.45)
[2023-04-24 23:07] LABS: D Dimer Quantitative* 6.34 ug/ml (0.00-0.50)
[2023-04-24 23:13] LABS: PCR FLU A Negative PCR FLU A (Negative); PCR FLU B Negative PCR FLU B (Negative); PCR RSV Negative PCR RSV (Negative)
[2023-04-24 23:18] LABS: Appearance Urine Slightly Cloudy (Clear); Bilirubin Urine 1+ (Negative); Blood Urine 2+ (Negative); Color Urine Orange (Yellow); Glucose Urine Negative (Negative); Ketones Urine Negative (Negative); Leukocyte Esterase Urine Negative (Negative); Nitrite Urine Positive (Negative); Protein Urine 2+ (Negative); Specific Gravity Urine >= 1.030 (1.000-1.030); pH Urine 5.5 (5.0-8.5)
--- NOTE | 2023-04-24 23:21 | ED.NURSE ---
Patients pulse oximetry reading 62-74%. Per MD corona at the bedside he would like the patient to be placed on 4L of Nasal Cannula. He believes that the patient is just having poor perfusion but his oxygenation is normal because his venous blood gas is 100
[2023-04-24 23:23] LABS: Ethanol* < 0.01 % (0.01-0.03)
--- NOTE | 2023-04-24 23:23 | ED.NURSE ---
Mike contacted for transfer to ICU bed.
[2023-04-24 23:24] LABS: SARS PCR* Negative SARS-CoV-2 (Negative)
[2023-04-24 23:28] LABS: Amphetamine Screen Urine Negative (Negative); Barbiturate Screen Urine Negative (Negative); Benzodiazepines Screen Urine Negative (Negative); Cannabinoid Screen Urine POSITIVE (Negative); Cocaine Screen Urine Negative (Negative); Methadone Screen Urine Negative (Negative); Methamphetamines Screen Urine Negative (Negative); Opiate Screen Urine Negative (Negative); Oxycodone Screen Urine Negative (Negative); Phencyclidine Screen Urine Negative (Negative); Tricyclic Antidepressant Urine Negative (Negative)
[2023-04-24] MEDS: PIPERACILLIN/TAZOBACTAM 3.375 GM in 0.9 % SODIUM CHLORIDE Mini-bag 100 ML IVPB (23:36)
[2023-04-24 23:38] LABS: Troponin I* 0.02 ng/mL (0.01-0.04)
[2023-04-24 23:46] LABS: Squamous Epithelial Cell Urine Moderate (None-Few)
[2023-04-24 23:47] LABS: Amorphous Sediment Urine Few; Bacteria Urine Moderate; Mucus Urine Many
[2023-04-25] VITALS (55 sets, daily range): BP systolic 82–145; BP diastolic 46–110; PULSE 60–96; RESP 18–36; TEMP 35.9–36.8; O2SAT 77–100; BMI 14.7
[2023-04-25 00:27] LABS: Albumin* 2.1 g/dL (3.3-5.0); Chloride* 115 mmol/L (96-114); Potassium* 4.5 mmol/L (3.6-5.1); Sodium* 137 mmol/L (135-149)
[2023-04-25 00:29] LABS: Alkaline Phosphatase* 112 U/L (40-150); Aspartate Amino Transferase* 136 U/L (12-35); Bilirubin Total* 1.4 mg/dL (0.1-1.5); Blood Urea Nitrogen* 21 mg/dL (7-30); Creatinine* 1.1 mg/dL (0.5-1.5); Est. Creatinine Clearance* 41.24; Estimated Glomerular Filt Rate 73 ml/min; Total Protein* 4.6 g/dL (6.0-8.3)
[2023-04-25 00:30] LABS: Alanine Aminotransferase* 33 U/L (4-50); Calcium* 7.2 mg/dL (8.4-10.6); Glucose* 177 mg/dL (60-115)
[2023-04-25 00:31] LABS: Anion Gap 17 mEq/L (7-15); Carbon Dioxide* < 5 mmol/L (20-32)
--- NOTE | 2023-04-25 00:40 | CRLHL7_ITS ---
For Patients: As a result of the Century Cures Act, medical imaging exams and procedure reports are released immediately into your electronic medical record. You may view this report before your referring provider. If you have questions, please contact your health care provider. INDICATION: Shortness of breath. TECHNIQUE: CT chest PE was acquired with 95 cc Isovue 370 IV contrast. COMPARISON: Chest radiograph 04/24/2023. FINDINGS: Heart and vasculature: Contrast opacification of the pulmonary arterial tree is adequate. No sign of pulmonary embolism. Heart size is normal. Thoracic aorta and pulmonary artery are normal in caliber. Coronary artery calcifications. Lungs and pleura: Mild emphysema. Patchy ground-glass opacities in the right upper and bilateral lower lobes. 4 mm left upper lobe nodule (series 4, image 103). No pleural effusions, pleural thickening, or pneumothorax. Lymph nodes/mediastinum: No mediastinal, hilar, or axillary adenopathy. Thyroid gland is unremarkable. Focal multiple locules of gas in the right gastroesophageal groove. Chest wall: No masses. Upper abdomen: Hepatic and splenic calcified granulomas. Bones: Chronic appearing mild superior endplate compression deformities of T3, T5, T6, and L1. IMPRESSION: 1. No evidence of pulmonary embolism. 2. Few scattered patchy ground-glass opacities, likely representing an infectious/inflammatory process. 3. Focal multiple locules of gas in the right gastroesophageal groove, nonspecific may represent complex tracheal diverticulum. Please note that all CT scans at this facility use dose modulation, iterative reconstruction, and/or weight-based dosing when appropriate to reduce radiation dose to as low as reasonably achievable. Dictated by Jignesh Gan MD @ 04/25/2023 1:46:57 AM (Electronically Signed)
[2023-04-25 01:43] LABS: Lactate* 14.2 mmol/L (0.5-1.9)
[2023-04-25] MEDS: 0.9 % SODIUM CHLORIDE 250 ml IV (02:02)
--- NOTE | 2023-04-25 02:14 | ED.NURSE ---
Message left with [facility]
[2023-04-25 02:43] LABS: Reticulocyte Hemoglobin Equivi 17.4 pg (29.0-35.0); Reticulocyte Percent 6.9 % (0.5-2.0); Reticulocytes Absolute 0.11 # (0.03-0.08)
[2023-04-25 02:47] LABS: Iron* 16 ug/dL (49-181)
[2023-04-25 02:56] LABS: Percent Iron Saturation 5 % (20-50); Total Iron Binding Capacity 315 ug/dL (261-462)
--- NOTE | 2023-04-25 03:21 | ED.NURSE ---
patient report given to Joann AKHTAR
--- NOTE | 2023-04-25 04:04 | W.PM.THH&P_ITS ---
Telehealth- H&P: HPI History of Present Illness Date Seen: 04/25/23 Chief complaint: shortness of breath Narrative: Manuelito Rider is seen as an Interactive Telehealth visit. Manuelito Rider is a 67 year old male wiith a past medical history notable for CAD on Plavix, alcohol use disorder, tobacco use disorder, previous history of microcytic anemia who presented with dyspnea. He reportedly has been losing weight with a poor appetite for several weeks. He reported feeling more short of breath over the last 2 to 3 days. He called his sister due to the dyspnea. When she checked on him he had increased work of breathing and was tachypneic. She reportedly found him surrounded by beer cans although the patient denies any alcohol use for the past 3 months. His sister called EMS. Apparently he was initially somewhat agitated and required 1 mg of Ativan in route. In the ER she was tachypneic, hypoxic and tachycardic. He was afebrile. The patient's sister provides history to the ER provider. She notes that she is on a statin for high cholesterol. She is on Plavix due to peripheral artery disease. Review of outside records shows that he was used to be on aspirin and Plavix but aspirin was held after an EGD. Patient has not had a colonoscopy in the past as he is cannot tolerate the prep. The patient denies any hemoptysis, hematemesis, hematochezia, melanotic stools. He denies any lightheadedness. He denies any fevers or chills. Denies any cough. He does report significant neuropatthy which he noticed in his lower legs. Review of Systems Status of ROS: Reports: 10 or more systems reviewed and unremarkable except as noted in History and below [facility] Medical History (Updated 04/25/23 @ 04:51 by Jose F Leyva MD) Malnutrition ?E46 - Unspecified protein-calorie malnutrition (ICD-10) Tobacco abuse ?Z72.0 - Tobacco use (ICD-10) Alcohol use disorder ?F10.90 - Alcohol use, unspecified, uncomplicated (ICD-10) Social History Smoking Status: Current every day smoker What tobacco products do you use: cigarettes Smoking packs per day: 1 Smoking cigarettes per day: 20.0 Years smoked: 50 Smoking pack-years: 50.00 Do you use any of these nicotine containing products: None Second hand tobacco smoke exposure: No How often do you have a drink containing alcohol: never How often do you have six or more drinks on one occasion: Never AUDIT-C Alcohol total score: 0 Non-prescribed substance use: denies use service: No Meds Home Medications and Allergies Home Medications Medication Instructions Recorded Confirmed Type aspirin 81 mg chewable tablet tab PO 10/04/22 History clopidogrel 75 mg tablet 75 mg PO DAILY 10/04/22 10/04/22 History famotidine 20 mg tablet 20 mg PO DAILY 10/04/22 10/04/22 History ferrous sulfate 325 mg (65 mg PO 10/04/22 History iron) tablet (FeroSul) rosuvastatin 40 mg tablet 40 mg PO QPM 10/04/22 10/04/22 History Allergies Allergy/AdvReac Type Severity Reaction Status Date / Time No Known Drug Allergies Allergy Verified 04/25/23 01:17 Exam Narrative Exam Narrative: Physical Exam GENERAL: ?vital signs reviewed, Cachectic, chronically ill-appearing HEENT: pupils are equal round and reactive to light, extraocular movements are grossly within normal limits and oral mucosa slightly dry NECK: Supple with mild non-tender left sided lymphadenopathy or thyromegaly according to nursing staff examination observation HEART: Borderline tachycardic rate and regular rhythm without any rubs, murmurs, or gallops. LUNGS: Clear to auscultation bilaterally with good air movement throughout ABDOMEN: Observation from nurse assisted exam, abdomen appears soft, nontender, and nondistended with Positive bowel sounds noted. EXTREMITIES: Strength and sensation is observed to be grossly within normal limits in the upper and lower extremities.? No focal strength deficit is observed. Decreased muscle bulk SKIN:? Observed warm and dry, he is pale, bruise on left lower extremity Const Vital Signs, click to edit/add: Vital Signs - 24 hr 04/24/23 22:33 04/24/23 22:36 04/24/23 22:37 Temperature 96.0 F L Pulse Rate Pulse Rate [Pulse Oximeter] 106 H Respiratory Rate 40 H Blood Pressure 101/70 77/50 L Blood Pressure [Right Upper Arm] 77/50 L Pulse Oximetry Oxygen Delivery Method Oxygen Flow Rate 04/24/23 22:41 04/24/23 22:46 04/24/23 22:51 Temperature Pulse Rate Pulse Rate [Pulse Oximeter] Respiratory Rate Blood Pressure 84/54 L 87/69 L 93/53 L Blood Pressure [Right Upper Arm] Pulse Oximetry Oxygen Delivery Method Oxygen Flow Rate 04/24/23 22:57 04/24/23 23:03 04/24/23 23:09 Temperature Pulse Rate 100 Pulse Rate [Pulse Oximeter] Respiratory Rate Blood Pressure 100/80 88/57 L Blood Pressure [Right Upper Arm] Pulse Oximetry Oxygen Delivery Method Oxygen Flow Rate 04/24/23 23:12 04/24/23 23:18 04/24/23 23:32 Temperature Pulse Rate Pulse Rate [Pulse Oximeter] Respiratory Rate Blood Pressure 98/63 75/50 L 65/39 L Blood Pressure [Right Upper Arm] Pulse Oximetry Oxygen Delivery Method Oxygen Flow Rate 04/24/23 23:35 04/24/23 23:37 04/24/23 23:43 Temperature Pulse Rate Pulse Rate [Pulse Oximeter] Respiratory Rate Blood Pressure 96/39 L 100/41 L 88/49 L Blood Pressure [Right Upper Arm] Pulse Oximetry Oxygen Delivery Method Oxygen Flow Rate 04/24/23 23:47 04/24/23 23:49 04/24/23 23:53 Temperature Pulse Rate Pulse Rate [Pulse Oximeter] Respiratory Rate Blood Pressure 83/73 L 154/142 H Blood Pressure [Right Upper Arm] Pulse Oximetry Oxygen Delivery Method Nasal Cannula Oxygen Flow Rate 4 04/24/23 23:58 04/25/23 00:01 04/25/23 00:01 Temperature Pulse Rate Pulse Rate [Pulse Oximeter] Respiratory Rate Blood Pressure 74/43 L 88/59 L 88/59 L Blood Pressure [Right Upper Arm] Pulse Oximetry Oxygen Delivery Method Oxygen Flow Rate 04/25/23 00:01 04/25/23 00:01 04/25/23 00:11 Temperature Pulse Rate Pulse Rate [Pulse Oximeter] Respiratory Rate Blood Pressure 88/59 L 88/59 L 105/53 L Blood Pressure [Right Upper Arm] Pulse Oximetry Oxygen Delivery Method Oxygen Flow Rate 04/25/23 00:20 04/25/23 00:34 04/25/23 00:36 Temperature Pulse Rate Pulse Rate [Pulse Oximeter] Respiratory Rate Blood Pressure 90/46 L 93/51 L 100/53 L Blood Pressure [Right Upper Arm] Pulse Oximetry Oxygen Delivery Method Oxygen Flow Rate 04/25/23 00:40 04/25/23 00:52 04/25/23 01:13 Temperature Pulse Rate Pulse Rate [Pulse Oximeter] Respiratory Rate Blood Pressure 95/53 L 83/49 L 82/51 L Blood Pressure [Right Upper Arm] Pulse Oximetry Oxygen Delivery Method Oxygen Flow Rate 04/25/23 01:25 04/25/23 01:30 04/25/23 01:32 Temperature Pulse Rate Pulse Rate [Pulse Oximeter] Respiratory Rate Blood Pressure 82/71 L Blood Pressure [Right Upper Arm] Pulse Oximetry 91 87 L 84 L Oxygen Delivery Method Oxygen Flow Rate 04/25/23 01:41 04/25/23 01:45 04/25/23 01:51 Temperature Pulse Rate Pulse Rate [Pulse Oximeter] Respiratory Rate Blood Pressure 103/55 L 104/59 L Blood Pressure [Right Upper Arm] Pulse Oximetry 81 L 83 L 81 L Oxygen Delivery Method Oxygen Flow Rate 04/25/23 02:01 04/25/23 02:07 04/25/23 02:11 Temperature 97.7 F Pulse Rate 95 Pulse Rate [Pulse Oximeter] Respiratory Rate 36 H Blood Pressure 84/54 L 84/54 L 91/53 L Blood Pressure [Right Upper Arm] Pulse Oximetry Oxygen Delivery Method Oxygen Flow Rate 04/25/23 02:25 04/25/23 03:10 Temperature 97.8 F 97.6 F Pulse Rate 96 95 Pulse Rate [Pulse Oximeter] Respiratory Rate 30 H 30 H Blood Pressure 88/55 L 98/72 Blood Pressure [Right Upper Arm] Pulse Oximetry Oxygen Delivery Method Oxygen Flow Rate Hospitalist - H&P: Result Labs Labs: Short CBC 04/24/23 Range/Units 22:20 WBC 5.61 (4.50-11.00) K/uL Hgb 5.1 L* (13.5-17.5) gm/dL Hct 19.9 L (37.0-53.0) % Plt Count 253 (140-440) K/uL BMP 04/24/23 23:27 Sodium 137 Potassium 4.5 Chloride 115 H Carbon Dioxide < 5 L* BUN 21 Creatinine 1.1 Glucose 177 H Calcium 7.2 L Cardiac Enzymes 04/24/23 Range/Units 22:20 Troponin I 0.02 (0.01-0.04) ng/mL Liver Function 04/24/23 Range/Units 23:27 Total Bilirubin 1.4 (0.1-1.5) mg/dL AST 136 H (12-35) U/L ALT 33 (4-50) U/L Alkaline Phosphatase 112 (40-150) U/L Albumin 2.1 L (3.3-5.0) g/dL Urine 04/24/23 Range/Units 23:10 Urine Color Troup A (Yellow) Urine Appearance Slightly Cloudy A (Clear) Urine pH 5.5 (5.0-8.5) Ur Specific Byron >= 1.030 (1.000-1.030) Urine Protein 2+ A (Negative) Urine Glucose (UA) Negative (Negative) ECG Attestation: I personally reviewed and interpreted this ECG as follows: (Chest x-ray personally reviewed: No focal opacities EKG personally reviewed: Poor quality due to significant baseline artifact no obvious ST elevation) Assessment and Plan Assessment and plan (1) Anemia: Status: Acute (2) Lactic acid acidosis: Status: Acute (3) Alcohol use disorder: Status: Acute (4) Tobacco abuse: Status: Acute (5) Malnutrition: Status: Acute (6) PAD (peripheral artery disease): Status: Inactive Plan Acute respiratory failure with hypoxia No evidence of pulmonary embolism Groundglass opacities in the lungs were relatively mild and does not likely explain the degree of hypoxia Likely worsened related to significant anemia May have some shunting related to liver disease Anemia History of microcytic anemia now with normocytic/slightly macrocytic anemia Suspect B12 or folate deficiency B12 and folate levels are pending Watch for hypokalemia B12 and folate are repleted Ferritin, iron panel, peripheral smear also will be obtained No history to suggest GI bleed, but will give one dose of IV PPI 2 units pRBCs. Recommended irradiated given history of lymphoma Peripheral artery disease Based on outside records on Plavix although patient unable to verify medications needs a review of the patient's sister who manages his medications Hyperlipidemia Continue statin Suspect protein calorie malnutrition Nutrition evaluation Alcohol use disorder Patient reports stopping alcohol use 3 months ago, however found surrounded by beer cans Concern for alcoholic liver disease Right upper quadrant ultrasound to look for evidence of cirrhosis Thiamine supplementation as patient is high risk for Warnicke's encephalopathy 250 mg 3 times daily for high dose prophylaxis CIWA w/ PRN ativan Neuropathy Gabapentin 300 mg at bedtime, should also help w/ ETOH withdrawal Tobacco use disorder Nicotine replacement Lactic acidosis Metabolic acidosis Suspect due to liver disease LR bolus Lactic acid improved 20 -> 14 Recheck lactic acid after fluids and blood No signs of infection Received Zosyn in ER Hypocalcemia Replace with IV calcium Possible DMITRY Given decreased muscle mass concerned that Cr 1.1 suggests DMITRY, continue to follow renal function Avoid nephrotoxic agents Full code Telehealth: Statement Statement Telehealth Visit: Today's History and Physical is provided via interactive telehealth by Jose F Leyva MD.? Patient is located at [facility].? Provider is located at [facility].? Nursing staff assisted with the patient's exam. The visit being done today meets criteria for a telehealth visit and the patient or patient?s parent/guardian is aware the visit is a telehealth visit. Camera Start Time: 04:02 Camera End Time: 04:15
[2023-04-25 04:09] LABS: Vitamin B12* 319 pg/mL (243-894)
[2023-04-25] MEDS: LACTATED RINGERS 1000 ML 1,000 ML IV (04:53)
[2023-04-25 04:56] LABS: Lactate Sepsis w/Reflex* 7.9 mmol/L (0.5-1.9)
[2023-04-25] MEDS: PANTOPRAZOLE SODIUM 40 MG INJ IVP ×2 (05:10→17:07)
[2023-04-25] MEDS: ACETAMINOPHEN 325 MG TABLET 650 MG PO (05:11)
[2023-04-25] MEDS: CALCIUM GLUC 1,000MG/50 ML 1,000 MG/50 ML BAG 100 MG IVPB (05:12)
[2023-04-25 05:28] LABS: Iron* 35 ug/dL (49-181)
[2023-04-25 05:37] LABS: Percent Iron Saturation 10 % (20-50); Total Iron Binding Capacity 355 ug/dL (261-462)
[2023-04-25] MEDS: GABAPENTIN 300 MG CAPSULE PO ×2 (06:03→17:48)
[2023-04-25] MEDS: NICOTINE 14 mg PATCH 1 PATCH TRANSDERMA (06:03)
[2023-04-25 06:05] LABS: Ferritin* 29.8 ng/mL (17.9-464.0)
[2023-04-25 06:56] LABS: Lactate Sepsis 2 Hour 5.1 mmol/L (0.5-1.9)
--- NOTE | 2023-04-25 07:37 | PC.NURSE ---
Patient to the unit at 0400. 1 Unit of PRBC running and completed and 1 additional unit hung at 0555. Tolerating well. CIWAs unremarkable. Rates BLE pain 04/07. Tylenol and Gabapentin administered per MD order. Unable to obtain accurate pulse ox reading d/t perfusion insufficiency. Nicotine patch on L. shoulder. Afebrile. SOB at rest.
--- NOTE | 2023-04-25 08:08 | CRLHL7_ITS ---
For Patients: As a result of the Century Cures Act, medical imaging exams and procedure reports are released immediately into your electronic medical record. You may view this report before your referring provider. If you have questions, please contact your health care provider. INDICATION: Acidosis TECHNIQUE: CT abdomen and pelvis acquired with IV contrast. COMPARISON: None FINDINGS: Lower chest: Basilar atelectasis mild bronchiectasis on the left. Liver: Liver granulomas. Spleen: Splenic granulomas. Minimal amount of perisplenic low-density fluid posteriorly. Pancreas: Unremarkable. Gallbladder and bile ducts: Probable sludge in the gallbladder. Tiny amount fluid adjacent to the liver/gallbladder. Kidneys: Right renal cyst. Additional too small to characterize low-attenuation lesions both kidneys nonobstructing tiny stones on the right Adrenal glands: Unremarkable. GI tract: Abundant stool in the colon diverticulosis. The bowel otherwise appears unremarkable Vascular structures: Mild ectasia of the abdominal aorta with mural thrombus. Extensive atherosclerotic calcification. Lymph nodes: Unremarkable. Miscellaneous: Minimal amount of fluid in the pelvis Pelvic Organs: Bean catheter in the urinary bladder with air Bones: Bones are demineralized. L2-L3 moderate compression fractures age indeterminate IMPRESSION: 1. No acute findings in the abdomen or pelvis. Please note that all CT scans at this facility use dose modulation, iterative reconstruction, and/or weight-based dosing when appropriate to reduce radiation dose to as low as reasonably achievable. Dictated by Madison Martínez MD @ 04/25/2023 4:45:26 PM (Electronically Signed)
--- NOTE | 2023-04-25 08:35 | CRLHL7_ITS ---
For Patients: As a result of the Century Cures Act, medical imaging exams and procedure reports are released immediately into your electronic medical record. You may view this report before your referring provider. If you have questions, please contact your health care provider. INDICATION: Alcoholic liver disease COMPARISON: CT chest 04/25/2023 TECHNIQUE: Real time montoya scale imaging and color Doppler analysis was performed of the right upper quadrant. FINDINGS: Normal visualized pancreas. Normal aorta proximal aspect. Calcified granulomas within the liver. Mild prominence of the portal triads. No intrahepatic mass. No ascites. Moderate layering hyperechoic sludge in the gallbladder. Gallbladder wall measures 1.9 millimeters. Common bile duct measures 6 millimeters. Right kidney normal measures 10.4 cm. Incidental simple cyst right kidney measuring 1.9 cm. IVC normal. IMPRESSION: Moderate layering sludge in the gallbladder. Chronic liver disease. Dictated by Jase Naqvi MD @ 04/25/2023 10:22:27 AM (Electronically Signed)
[2023-04-25 08:36] LABS: Base Excess ABG -10.5 mmol/L (-3.0-3.0); HCO3 ABG 12 mmol/L (21-28); pH ABG 7.45 (7.35-7.45)
[2023-04-25 08:38] LABS: Ionized Calcium* 1.11 mmol/L (1.11-1.30)
[2023-04-25 08:39] LABS: Oxygen Saturation ABG > 100 % (92-100)
[2023-04-25 08:42] LABS: ABG PCO2 17 mmHG (35-45)
[2023-04-25 08:45] LABS: Hematocrit 27.3 % (37.0-53.0); Hemoglobin* 8.4 gm/dL (13.5-17.5); Lymphocytes Percent Auto 15.8 % (20-44); Mean Corpuscular HGB Conc 31 gm/dL (32-36); Mean Corpuscular Hemoglobin 28 pg (26-34); Mean Corpuscular Volume 89 fL (80-100); Monocytes Percent Auto 3.1 % (0.0-11.0); Neutrophils Percent Auto 80.1 % (42.0-72.0); Platelet Count* 114 K/uL (140-440); RDW Coefficient of Variation % 16.2 % (11.5-15.5); Red Blood Count 3.06 m/uL (4.30-5.90); White Blood Count* 2.92 K/uL (4.50-11.00)
--- NOTE | 2023-04-25 08:45 | P.IMPN_ITS ---
Progress Note: A&P Assessment and plan (1) Lactic acid acidosis: Problem details: -improving. lactate decreasing since admission. pH improving. -likely related to hypoperfusion, chronic liver disease, alcoholism -improving with blood, fluids, general support Status: Acute (2) Acute anemia: Problem details: Vitamin B12 = 319. Folate pending Absolute retic count 0.11 upper limits of normal 0.08 % reticulocyte count 6.9% upper limits of normal 2.0 Immature reticulocyte fraction 33% upper limits of normal 13.4 no evidence of acute bleed. guiac stool test ordered. no clinical or historical evidence of varices or lower GI bleed. replaced two units of blood. Peripheral smear is pending. BRANDEN Lary orderd. 09/18 Specimen: Duodenum Biopsy, Duodenum biopsy for iron deficiency anemia Final Diagnosis A) DUODENUM, BIOPSY: 1. Normal duodenal mucosa 2. Negative for celiac disease and other enteropathy He has had a bronchoscopy in May of 2022 an endoscopy in August of 2022. The reticulocyte count is helpful in narrowing the diagnosis of unexplained anemia. A high reticulocyte count typically indicates hemolysis; recovery from bleeding; removal of a bone marrow insult (drug or infection); or repletion of iron, folic acid, or vitamin B12. Genetic causes of hemolytic anemia may be associated with a positive family history and often have characteristic RBC morphologies on the blood smear that can be useful in guiding the evaluation. Status: Acute (3) Protein-calorie malnutrition, severe: Problem details: -principally from self neglect, weakness, chronic alcoholism -will do OT eval for cognitive issues -ammonia level for encephalopathy concern ordered. -consider MR brain Status: Acute (4) UTI (urinary tract infection): Problem details: on ceftriaxone. culture pending. no ascites. at this time little to no concern regarding SBP. Status: Acute (5) PAD (peripheral artery disease): Problem details: longstanding smoker. plavix. stends. c/o of chronic calf and sole pain. likely superimposed chronic peripheral neuropathy. 09/18 Procedure: 1. Left lower extremity angiogram lower extremity angiogram. 2. Angioplasty of proximal SFA, distal SFA, and above-knee popliteal artery with 6 mm balloon 3. Angio-Seal closure of right common femoral access site. 09/18 After overnight tPA infusion, there was resolution of the previous clot in the superficial femoral artery. The stents were patent. There was some mild stenoses noted in the distal SFA and popliteal artery. There is three-vessel runoff to the foot. Heparin was administered. The infusion catheter was removed over wire. A 6 x 60 mm angioplasty balloon was inserted and angioplasty was performed at multiple mild/moderate stenoses in the distal SFA and popliteal artery. The proxima lmost stent in the left SFA is about 1 cm below the bifurcation of the superficial femoral and profundofemoral arteries. There appeared to be a mild stenosis at that site as well. It was angioplastied with a 6 mm balloon. Repeat angiography demonstrated a good angiographic result at each site. The images were reviewed with Dr. Patton from vascular surgery. None of the lesions appeared critical enough that they needed additional stent placement. It is thought that the patient's stents thrombosed primarily because of medication noncompliance. Status: Acute (6) Tobacco abuse: Problem details: chronic Status: Acute (7) Alcohol use disorder: Problem details: chronic Right upper quadrant ultrasound Moderate layering sludge in the gallbladder. Chronic liver disease. Calcified granulomas within the liver. Mild prominence of the portal triads. No ascites. MELD 3.0 = 15 (inr 1.25, NA 134, bili 1.9, creat 0.9, albumin 2.5) Status: Acute (8) Marijuana abuse, continuous: Problem details: chronic Status: Acute (9) Elevated d-dimer: Problem details: no PE could consider DVT workup in legs Status: Acute (10) History of DVT (deep vein thrombosis): Problem details: distant hx. not on AC. Status: Acute (11) Sick-euthyroid syndrome: Problem details: TSH>20, normal t4 Status: Acute (12) Demand ischemia: Problem details: trending trop. ecg. echo shows mild to moderate LV global dysfunction. Status: Acute Subjective Date Seen: 04/25/23 Interval history: Daily Progress Note - Hospital Medicine Day #: 1 CC: Admission for acute respiratory failure, protein calorie malnutrition, poor self-care, chronic liver disease, stigmata of chronic alcoholism OVERNIGHT UPDATES FROM STAFF & MED, LAB, IMAGING UPDATES Oxygen requirement has come down nicely he is on room air or less than a L at times with O2 sats 100%. Hemodynamically has continued to be stable. profoundly weak. Status post 2 units of packed cells Abdominal ultrasound completed that shows chronic liver disease fluid bolus of NS, LR and now on LR 125cc/hour awaiting CT A/P 144/70. Pulse 75. Respiratory rate 22. Afebrile. On room air sats were minimal supplemental oxygen for 95-100% sats. Mild neutropenia 2.92. Hemoglobin is up to 8.4 from a sotero of 5.1 upon presentation yesterday night. Platelet count 114. Blood gases improved nicely. First 1 obtained in the ED 7.15, improved to 7.45. Bicarb has increased to 17. INR 1.25 Mild hyponatremia 134 Lactate trending down Phosphorus, magnesium, ionized calcium are all normal. Total bilirubin 1.9 GGT 39 AST 131, normal ALT and alk-phos. MELD 3.0 SCORE ON 04/25 15 Troponin 0.07 C reactive protein 2.9 Total protein 4.6-5.4, albumin 2.1-2.5 TSH 21. Free T4 1.45 T3 pending Right upper quadrant ultrasound: Moderate layering sludge in the gallbladder. Chronic liver disease. Calcified granulomas within the liver. Mild prominence of the portal triads. No ascites. CTA 1. No evidence of pulmonary embolism. 2. Few scattered patchy ground-glass opacities, likely representing an infectious/inflammatory process. 3. Focal multiple locules of gas in the right gastroesophageal groove, nonspecific may represent complex tracheal diverticulum. echo 04/25 (today) Final Impressions: 1. Normal left ventricular size, normal wall thickness, low normal global systolic function, calculated EF of 53 %. 2. Right ventricular cavity size is normal, global systolic RV function is normal. 3. Normal left atrium size. 4. The aortic valve is trileaflet and sclerotic, no stenosis and trivial regurgitation. 5. Severe tricuspid regurgitation with an estimated RVSP of 56 mmHg plus the RA pressure (i.e., comparible with severely elevated pulmonary pressures). 6. IVC geometry compatible with an intermediate estimated RA pressure (8 mmHg). whole body bone scan 04/15/23 IMPRESSION: 1. No convincing scintigraphic evidence for skeletal metastatic disease. 2. Scattered degenerative-type uptake as described. 3. Focal uptake in the sternum may be posttraumatic in nature. Linear uptake at L2 and L3 likely posttraumatic in nature as well. 4. Subtle uptake within the right 5th costochondral junction lateral left 4th rib may be posttraumatic in nature. lumbar spine 03/21 IMPRESSION: 1. Acute inferior endplate compression fracture at L3 with overlying Schmorl's node. 2. Suspect acute superior endplate Schmorl's node at L2. 3. Multilevel disc degeneration and facet hypertrophy as described above. This is greatest at L5-S1 where there is mild spinal canal stenosis and moderate bilateral neural foraminal stenosis. Objective: Edentulous. Disheveled. Sallow. emaciated. Follows conversation but does not really initiate conversation. Answers in 1-2 word sentences or que stions. Vitals: see above Lungs: Clear. Scattered rhonchi Scaphoid abdomen. No evidence of ascites. No evidence of telangctasia. Cardiac: S1S2. Atrophic legs, poor muscle mass. No edema. Disposition/Potential discharge - Likely to return to previous living situation. Spoke with sister bedside Today I spent 50minutes seeing the patient, reviewing Expanse and EPIC notes/diagnostics, discussing the care plan with our care time that includes social work, PT/OT, pharmacy, RT, nursing home and documenting my impressions and plan in the medical record. Prolonged Physician Services Alcohol [id number] >30 mins. We went over all the stigmata of alcoholism I see in this patient. I discussed the effects of chronic alcohol on the brain, liver, and heart. I recommended complete abstinence from alcohol and instructed on programs available at discharge from acute care. Exam Const: Vital Signs, click to edit/add: Vital Signs - 24 hr 04/24/23 22:33 04/24/23 22:36 04/24/23 22:37 Temperature 96.0 F L Pulse Rate Pulse Rate [Pulse Oximeter] 106 H Respiratory Rate 40 H Blood Pressure 101/70 77/50 L Blood Pressure [Le ft Arm] Blood Pressure [Ri ght Upper Arm] 77/50 L Pulse Oximetry Oxygen Delivery Me thod Oxygen Flow Rate 04/24/23 22:41 04/24/23 22:46 04/24/23 22:51 Temperature Pulse Rate Pulse Rate [Pulse Oximeter] Respiratory Rate Blood Pressure 84/54 L 87/69 L 93/53 L Blood Pressure [Le ft Arm] Blood Pressure [Ri ght Upper Arm] Pulse Oximetry Oxygen Delivery Me thod Oxygen Flow Rate 04/24/23 22:57 04/24/23 23:03 04/24/23 23:09 Temperature Pulse Rate 100 Pulse Rate [Pulse Oximeter] Respiratory Rate Blood Pressure 100/80 88/57 L Blood Pressure [Le ft Arm] Blood Pressure [Ri ght Upper Arm] Pulse Oximetry Oxygen Delivery Me thod Oxygen Flow Rate 04/24/23 23:12 04/24/23 23:18 04/24/23 23:32 Temperature Pulse Rate Pulse Rate [Pulse Oximeter] Respiratory Rate Blood Pressure 98/63 75/50 L 65/39 L Blood Pressure [Le ft Arm] Blood Pressure [Ri ght Upper Arm] Pulse Oximetry Oxygen Delivery Me thod Oxygen Flow Rate 04/24/23 23:35 04/24/23 23:37 04/24/23 23:43 Temperature Pulse Rate Pulse Rate [Pulse Oximeter] Respiratory Rate Blood Pressure 96/39 L 100/41 L 88/49 L Blood Pressure [Le ft Arm] Blood Pressure [Ri ght Upper Arm] Pulse Oximetry Oxygen Delivery Me thod Oxygen Flow Rate 04/24/23 23:47 04/24/23 23:49 04/24/23 23:53 Temperature Pulse Rate Pulse Rate [Pulse Oximeter] Respiratory Rate Blood Pressure 83/73 L 154/142 H Blood Pressure [Le ft Arm] Blood Pressure [Ri ght Upper Arm] Pulse Oximetry Oxygen Delivery Me thod Nasal Cannula Oxygen Flow Rate 4 04/24/23 23:58 04/25/23 00:01 04/25/23 00:01 Temperature Pulse Rate Pulse Rate [Pulse Oximeter] Respiratory Rate Blood Pressure 74/43 L 88/59 L 88/59 L Blood Pressure [Le ft Arm] Blood Pressure [Ri ght Upper Arm] Pulse Oximetry Oxygen Delivery Me thod Oxygen Flow Rate 04/25/23 00:01 04/25/23 00:01 04/25/23 00:11 Temperature Pulse Rate Pulse Rate [Pulse Oximeter] Respiratory Rate Blood Pressure 88/59 L 88/59 L 105/53 L Blood Pressure [Le ft Arm] Blood Pressure [Ri ght Upper Arm] Pulse Oximetry Oxygen Delivery Me thod Oxygen Flow Rate 04/25/23 00:20 04/25/23 00:34 04/25/23 00:36 Temperature Pulse Rate Pulse Rate [Pulse Oximeter] Respiratory Rate Blood Pressure 90/46 L 93/51 L 100/53 L Blood Pressure [Le ft Arm] Blood Pressure [Ri ght Upper Arm] Pulse Oximetry Oxygen Delivery Me thod Oxygen Flow Rate 04/25/23 00:40 04/25/23 00:52 04/25/23 01:13 Temperature Pulse Rate Pulse Rate [Pulse Oximeter] Respiratory Rate Blood Pressure 95/53 L 83/49 L 82/51 L Blood Pressure [Le ft Arm] Blood Pressure [Ri ght Upper Arm] Pulse Oximetry Oxygen Delivery Me thod Oxygen Flow Rate 04/25/23 01:25 04/25/23 01:30 04/25/23 01:32 Temperature Pulse Rate Pulse Rate [Pulse Oximeter] Respiratory Rate Blood Pressure 82/71 L Blood Pressure [Le ft Arm] Blood Pressure [Ri ght Upper Arm] Pulse Oximetry 91 87 L 84 L Oxygen Delivery Me thod Oxygen Flow Rate 04/25/23 01:41 04/25/23 01:45 04/25/23 01:51 Temperature Pulse Rate Pulse Rate [Pulse Oximeter] Respiratory Rate Blood Pressure 103/55 L 104/59 L Blood Pressure [Le ft Arm] Blood Pressure [Ri ght Upper Arm] Pulse Oximetry 81 L 83 L 81 L Oxygen Delivery Me thod Oxygen Flow Rate 04/25/23 02:01 04/25/23 02:07 04/25/23 02:11 Temperature 97.7 F Pulse Rate 95 Pulse Rate [Pulse Oximeter] Respiratory Rate 36 H Blood Pressure 84/54 L 84/54 L 91/53 L Blood Pressure [Le ft Arm] Blood Pressure [Ri ght Upper Arm] Pulse Oximetry Oxygen Delivery Me thod Oxygen Flow Rate 04/25/23 02:21 04/25/23 02:25 04/25/23 02:31 Temperature 97.8 F Pulse Rate 96 Pulse Rate [Pulse Oximeter] Respiratory Rate 30 H Blood Pressure 88/55 L 88/55 L 88/62 L Blood Pressure [Le ft Arm] Blood Pressure [Ri ght Upper Arm] Pulse Oximetry Oxygen Delivery Me thod Oxygen Flow Rate 04/25/23 02:41 04/25/23 02:55 04/25/23 03:02 Temperature Pulse Rate Pulse Rate [Pulse Oximeter] Respiratory Rate Blood Pressure 98/59 L 102/62 98/72 Blood Pressure [Le ft Arm] Blood Pressure [Ri ght Upper Arm] Pulse Oximetry Oxygen Delivery Me thod Oxygen Flow Rate 04/25/23 03:10 04/25/23 03:11 04/25/23 03:21 Temperature 97.6 F Pulse Rate 95 Pulse Rate [Pulse Oximeter] Respiratory Rate 30 H Blood Pressure 98/72 82/60 L 113/70 Blood Pressure [Le ft Arm] Blood Pressure [Ri ght Upper Arm] Pulse Oximetry Oxygen Delivery Me thod Oxygen Flow Rate 04/25/23 03:30 04/25/23 03:40 04/25/23 03:43 Temperature Pulse Rate 60 95 Pulse Rate [Pulse Oximeter] Respiratory Rate 30 H Blood Pressure 119/70 113/67 Blood Pressure [Le ft Arm] Blood Pressure [Ri ght Upper Arm] Pulse Oximetry 77 L Oxygen Delivery Me thod Oxygen Flow Rate 04/25/23 03:49 04/25/23 04:05 04/25/23 04:58 Temperature 96.6 F L 96.6 F L Pulse Rate 86 Pulse Rate [Pulse Oximeter] 93 93 Respiratory Rate 28 H 28 H Blood Pressure Blood Pressure [Le ft Arm] 118/59 L 118/59 L Blood Pressure [Ri ght Upper Arm] Pulse Oximetry Oxygen Delivery Me thod Nasal Cannula Oxygen Flow Rate 4.0 04/25/23 04:58 04/25/23 05:05 04/25/23 05:21 Temperature 96.8 F L 96.6 F L Pulse Rate 93 Pulse Rate [Pulse Oximeter] 93 Respiratory Rate 28 H 26 H 28 H Blood Pressure 130/72 Blood Pressure [Le ft Arm] 130/72 Blood Pressure [Ri ght Upper Arm] Pulse Oximetry Oxygen Delivery Me thod Nasal Cannula Nasal Cannula Oxygen Flow Rate 4.0 4.0 04/25/23 05:51 04/25/23 05:53 04/25/23 06:05 Temperature 96.9 F L 96.9 F L 96.9 F L Pulse Rate 91 91 Pulse Rate [Pulse Oximeter] 93 Respiratory Rate 26 H 26 H 28 H Blood Pressure 130/77 130/77 Blood Pressure [Le ft Arm] 129/72 Blood Pressure [Ri ght Upper Arm] Pulse Oximetry Oxygen Delivery Me thod Nasal Cannula Oxygen Flow Rate 4.0 04/25/23 06:12 04/25/23 06:14 04/25/23 07:00 Temperature 96.6 F L 96.9 F L 97.6 F Pulse Rate 90 89 Pulse Rate [Pulse Oximeter] 86 Respiratory Rate 26 H 26 H 22 Blood Pressure 125/110 H 129/72 Blood Pressure [Le ft Arm] 145/73 H Blood Pressure [Ri ght Upper Arm] Pulse Oximetry 100 Oxygen Delivery Me thod Nasal Cannula Oxygen Flow Rate 1.5 04/25/23 07:00 04/25/23 07:49 04/25/23 08:00 Temperature 97.7 F Pulse Rate 86 Pulse Rate [Pulse Oximeter] 86 86 Respiratory Rate 22 22 Blood Pressure Blood Pressure [Le ft Arm] 132/69 Blood Pressure [Ri ght Upper Arm] Pulse Oximetry 100 Oxygen Delivery Me thod Room Air Oxygen Flow Rate Labs Labs: Laboratory Results - last 24 hr 04/24/23 04/24/23 04/24/23 22:20 22:30 22:34 WBC 5.61 RBC 2.11 L Hgb 5.1 L* Hct 19.9 L MCV 94 MCH 24 L MCHC 26 L RDW Coeff of Pepe 19.4 H Plt Count 253 Neut % (Auto) 62.5 Lymph % (Auto) 30.5 [place] % (Auto) 4.5 Eos % (Auto) 0.0 Baso % (Auto) 0.5 Neut # (Auto) 3.51 Lymph # (Auto) 1.71 [place] # (Auto) 0.30 Eos # (Auto) 0.00 Baso # (Auto) 0.03 Abs Immat Gran (auto) 0.11 Imm/Tot Granulo (auto) 2.0 Absolute Retic Percent Retic Immature Retic Fraction Retic Hgb Equivalent D-Dimer Quant (PE/DVT) 6.34 H ABG pH ABG pCO2 ABG pO2 ABG HCO3 ABG Total CO2 ABG O2 Saturation ABG Base Excess Carboxyhemoglobin Sodium Potassium Chloride Carbon Dioxide Anion Gap BUN Creatinine Estimated Creat Clear Estimated GFR Glucose Lactate 20.0 H* Calcium Ionized Calcium Isha Iron TIBC % Saturation Ferritin Total Bilirubin AST ALT Alkaline Phosphatase Troponin I 0.02 Total Protein Albumin Vitamin B12 Urine Color Urine Appearance Urine pH Ur Specific [place] Urine Protein Urine Glucose (UA) Urine Ketones Urine Blood Urine Nitrite Urine Bilirubin Urine Urobilinogen Ur Leukocyte Esterase Urine RBC Urine WBC Ur Squamous Epith Cells Amorphous Sediment Urine Bacteria Urine Mucus Urine Opiates Screen Ur Oxycodone Screen Urine Methadone Screen Ur Propoxyphene Screen Ur Barbiturates Screen U Tricyclic Antidepress Ur Phencyclidine Scrn Ur Amphetamines Screen U Methamphetamines Scrn U Benzodiazepines Scrn Urine Cocaine Screen U Marijuana (THC) Screen Ur Drug Screen Comment Ethyl Alcohol < 0.01 L SARS-CoV-2 (PCR) Negative SARS-CoV-2 Influenza Type A (PCR) Negative PCR FLU A Influenza Type B (PCR) Negative PCR FLU B RSV (PCR) Negative PCR RSV POC Troponin I 0.01 Blood Type Antibody Screen Crossmatch (AHG) 04/24/23 04/24/23 04/24/23 22:49 22:50 23:10 WBC RBC Hgb Hct MCV MCH MCHC RDW Coeff of [place] Plt Count Neut % (Auto) Lymph % (Auto) [place] % (Auto) Eos % (Auto) Baso % (Auto) Neut # (Auto) Lymph # (Auto) [place] # (Auto) Eos # (Auto) Baso # (Auto) Abs Immat Gran (auto) Imm/Tot Granulo (auto) Absolute Retic Percent Retic Immature Retic Fraction Retic Hgb Equivalent D-Dimer Quant (PE/DVT) ABG pH 7.15 L* ABG pCO2 < 15 L* ABG pO2 169.0 H ABG HCO3 Not Reportable ABG Total CO2 Not Reportable ABG O2 Saturation > 100 H ABG Base Excess Not Reportable Carboxyhemoglobin 2.8 Sodium Potassium Chloride Carbon Dioxide Anion Gap BUN Creatinine Estimated Creat Clear Estimated GFR Glucose Lactate Calcium Ionized Calcium Isha Iron TIBC % Saturation Ferritin Total Bilirubin AST ALT Alkaline Phosphatase Troponin I Total Protein Albumin Vitamin B12 Urine Color [place] A Urine Appearance Slightly Cloudy A Urine pH 5.5 Ur Specific [place]ila >= 1.030 Urine Protein 2+ A Urine Glucose (UA) Negative Urine Ketones Negative Urine Blood 2+ A Urine Nitrite Positive A Urine Bilirubin 1+ A Urine Urobilinogen 4.0 A Ur Leukocyte Esterase Negative Urine RBC 2-5 A Urine WBC 2-5 Ur Squamous Epith Cells Moderate A Amorphous Sediment Few A Urine Bacteria Moderate A Urine Mucus Many A Urine Opiates Screen Negative Ur Oxycodone Screen Negative Urine Methadone Screen Negative Ur Propoxyphene Screen Negative Ur Barbiturates Screen Negative U Tricyclic Antidepress Negative Ur Phencyclidine Scrn Negative Ur Amphetamines Screen Negative U Methamphetamines Scrn Negative U Benzodiazepines Scrn Negative Urine Cocaine Screen Negative U Marijuana (THC) Screen POSITIVE A Ur Drug Screen Comment See Note Ethyl Alcohol SARS-CoV-2 (PCR) Influenza Type A (PCR) Influenza Type B (PCR) RSV (PCR) POC Troponin I Blood Type O Positive Antibody Screen NEGATIVE Crossmatch (AHG) See Detail 04/24/23 04/25/23 04/25/23 23:27 01:30 04:45 WBC RBC Hgb Hct MCV MCH MCHC RDW Coeff of [place] Plt Count Neut % (Auto) Lymph % (Auto) [place] % (Auto) Eos % (Auto) Baso % (Auto) Neut # (Auto) Lymph # (Auto) [place] # (Auto) Eos # (Auto) Baso # (Auto) Abs Immat Gran (auto) Imm/Tot Granulo (auto) Absolute Retic 0.11 H Percent Retic 6.9 H Immature Retic Fraction 33.0 H Retic Hgb Equivalent 17.4 L D-Dimer Quant (PE/DVT) ABG pH ABG pCO2 ABG pO2 ABG HCO3 ABG Total CO2 ABG O2 Saturation ABG Base Excess Carboxyhemoglobin Sodium 137 Potassium 4.5 Chloride 115 H Carbon Dioxide < 5 L* Anion Gap 17 H BUN 21 Creatinine 1.1 Estimated Creat Clear 41.24 Estimated GFR 73 Glucose 177 H Lactate 14.2 H* 7.9 H* Calcium 7.2 L Ionized Calcium Isha Iron 16 L 35 L TIBC 315 355 % Saturation 5 L 10 L Ferritin 29.8 Total Bilirubin 1.4 AST 136 H ALT 33 Alkaline Phosphatase 112 Troponin I Total Protein 4.6 L Albumin 2.1 L Vitamin B12 319 Urine Color Urine Appearance Urine pH Ur Specific [place] Urine Protein Urine Glucose (UA) Urine Ketones Urine Blood Urine Nitrite Urine Bilirubin Urine Urobilinogen Ur Leukocyte Esterase Urine RBC Urine WBC Ur Squamous Epith Cells Amorphous Sediment Urine Bacteria Urine Mucus Urine Opiates Screen Ur Oxycodone Screen Urine Methadone Screen Ur Propoxyphene Screen Ur Barbiturates Screen U Tricyclic Antidepress Ur Phencyclidine Scrn Ur Amphetamines Screen U Methamphetamines Scrn U Benzodiazepines Scrn Urine Cocaine Screen U Marijuana (THC) Screen Ur Drug Screen Comment Ethyl Alcohol SARS-CoV-2 (PCR) Influenza Type A (PCR) Influenza Type B (PCR) RSV (PCR) POC Troponin I Blood Type Antibody Screen Crossmatch (AHG) 04/25/23 04/25/23 04/25/23 06:40 08:20 08:30 WBC RBC Hgb Hct MCV MCH MCHC RDW Coeff of [place] Plt Count Neut % (Auto) Lymph % (Auto) [place] % (Auto) Eos % (Auto) Baso % (Auto) Neut # (Auto) Lymph # (Auto) [place] # (Auto) Eos # (Auto) Baso # (Auto) Abs Immat Gran (auto) Imm/Tot Granulo (auto) Absolute Retic Percent Retic Immature Retic Fraction Retic Hgb Equivalent D-Dimer Quant (PE/DVT) ABG pH 7.45 ABG pCO2 17 L* ABG pO2 108.0 H ABG HCO3 12 L ABG Total CO2 Not Reportable ABG O2 Saturation > 100 H ABG Base Excess -10.5 L Carboxyhemoglobin 2.0 Sodium Potassium Chloride Carbon Dioxide Anion Gap BUN Creatinine Estimated Creat Clear Estimated GFR Glucose Lactate 5.1 H* 2.8 H Calcium Ionized Calcium Isha 1.11 Iron TIBC % Saturation Ferritin Total Bilirubin AST ALT Alkaline Phosphatase Troponin I Total Protein Albumin Vitamin B12 Urine Color Urine Appearance Urine pH Ur Specific [place] Urine Protein Urine Glucose (UA) Urine Ketones Urine Blood Urine Nitrite Urine Bilirubin Urine Urobilinogen Ur Leukocyte Esterase Urine RBC Urine WBC Ur Squamous Epith Cells Amorphous Sediment Urine Bacteria Urine Mucus Urine Opiates Screen Ur Oxycodone Screen Urine Methadone Screen Ur Propoxyphene Screen Ur Barbiturates Screen U Tricyclic Antidepress Ur Phencyclidine Scrn Ur Amphetamines Screen U Methamphetamines Scrn U Benzodiazepines Scrn Urine Cocaine Screen U Marijuana (THC) Screen Ur Drug Screen Comment Ethyl Alcohol SARS-CoV-2 (PCR) Influenza Type A (PCR) Influenza Type B (PCR) RSV (PCR) POC Troponin I Blood Type Antibody Screen Crossmatch (AHG)
--- NOTE | 2023-04-25 08:52 | RESP.RT ---
Patient lying in bed, Nasal Cannula in place with flow off, SaO2 99%. Breathing regular/easy slightly shallow at 18/minute. Bilateral breath sounds clear with good air movement and fine crackles noted. ABGs drawn, sent to lab, site pressure held, dressed.
[2023-04-25 08:59] LABS: Albumin* 2.5 g/dL (3.3-5.0); Chloride* 112 mmol/L (96-114)
[2023-04-25 09:00] LABS: Potassium* 3.8 mmol/L (3.6-5.1); Sodium* 134 mmol/L (135-149)
[2023-04-25 09:01] LABS: Prothrombin Time 16.4 Seconds
[2023-04-25 09:02] LABS: Creatinine* 0.9 mg/dL (0.5-1.5); Est. Creatinine Clearance* 41.37; Estimated Glomerular Filt Rate 93 ml/min
[2023-04-25 09:03] LABS: Alanine Aminotransferase* 26 U/L (4-50); Alkaline Phosphatase* 126 U/L (40-150); Anion Gap 10 mEq/L (7-15); Aspartate Amino Transferase* 131 U/L (12-35); Bilirubin Direct* 0.2 mg/dL (0.0-0.5); Bilirubin Total* 1.9 mg/dL (0.1-1.5); Blood Urea Nitrogen* 19 mg/dL (7-30); Calcium* 7.7 mg/dL (8.4-10.6); Carbon Dioxide* 12 mmol/L (20-32); Gamma Glutamyl Transpeptidase* 39 U/L (8-55); Glucose* 78 mg/dL (60-115); Phosphorus* 4.1 mg/dL (2.5-4.5); Total Protein* 5.4 g/dL (6.0-8.3)
[2023-04-25 09:04] LABS: Gamma Glutamyl Transpeptidase* 47 U/L (8-55)
[2023-04-25 09:04] LABS: Magnesium* 2.3 mg/dL (1.5-2.6)
[2023-04-25 09:05] LABS: C Reactive Protein* 2.9 mg/dL (0.5-1.0); INR 1.25 (0.91-1.10); Slide Review Reflex No
[2023-04-25 09:06] LABS: Lactate* 2.8 mmol/L (0.5-1.9)
[2023-04-25 09:15] LABS: Troponin I* 0.07 ng/mL (0.01-0.04)
[2023-04-25 09:15] LABS: Troponin I* 0.02 ng/mL (0.01-0.04)
[2023-04-25] MEDS: LACTATED RINGERS 1000 ML 1,000 ML 125 ML IV ×2 (09:15→17:04)
[2023-04-25 09:17] LABS: NT Pro B Type NatriureticPept* 1670 pg/mL
[2023-04-25] MEDS: MULTIVITAMIN/MINERALS 1 TABLET 1 TAB PO (09:18)
[2023-04-25] MEDS: FOLIC ACID 1 MG TABLET PO (09:18)
[2023-04-25 09:19] LABS: Lipase* 17 U/L (23-300)
[2023-04-25] MEDS: cefTRIAXone 2 GM in 0.9 % SODIUM CHLORIDE Mini-bag 100 ML IVPB (09:19)
[2023-04-25] MEDS: SODIUM CHLORIDE 0.9 % (FLUSH) 10 ML SYRINGE 5 ML IVF ×2 (09:23→20:37)
[2023-04-25] MEDS: THIAMINE 250 MG in 0.9 % SODIUM CHLORIDE 100 ml 100 ML 102.5 MG IVPB ×3 (10:07→20:37)
[2023-04-25 10:56] LABS: Free T4 Free Thyroxine* 1.45 ng/dL (0.70-1.85)
[2023-04-25 15:47] LABS: Lab Add On Test New Spec Needed
[2023-04-25] MEDS: LACTULOSE 20 GM/30 ML PO ×2 (17:51→20:36)
[2023-04-25 18:19] LABS: Hemoglobin* 8.4 gm/dL (13.5-17.5)
--- NOTE | 2023-04-25 18:41 | PC.NURSE ---
End of shift: Patient is alert and oriented. Rates nerve pain in lower extremities 5-8/10. CIWA scores are 0. Patient does not have much of an appetite. few bites of breakfast and a chocolate ensure for lunch. denies Nausea after consuming. Patient received 2 units of blood. tolerated infusion well, no reaction noted. Patient worked with PT on sit and stand. Patient stated he feels weak but will continue to try. Bean patent and draining dark kevin urine. Patient sating 98-100 % on RA. IV in left wrist and AC patent. Tele shows NSR.
[2023-04-25 18:47] LABS: Chloride* 110 mmol/L (96-114); Sodium* 132 mmol/L (135-149)
[2023-04-25 18:48] LABS: Potassium* 4.1 mmol/L (3.6-5.1)
[2023-04-25 18:50] LABS: Anion Gap 5 mEq/L (7-15); Blood Urea Nitrogen* 16 mg/dL (7-30); Carbon Dioxide* 17 mmol/L (20-32); Creatinine* 0.7 mg/dL (0.5-1.5); Est. Creatinine Clearance* 41.37; Estimated Glomerular Filt Rate 100 ml/min
[2023-04-25 18:51] LABS: Calcium* 7.5 mg/dL (8.4-10.6); Glucose* 90 mg/dL (60-115)
[2023-04-25 19:01] LABS: Ammonia* < 9.0 umol/L (13.1-30.0)
[2023-04-25] MEDS: ROSUVASTATIN CALCIUM 10 MG TABLET 40 MG PO (20:36)
[2023-04-25] MEDS: MELATONIN 3 MG TABLET PO (20:36)
[2023-04-25 22:40] LABS: Troponin I* 0.16 ng/mL (0.01-0.04)
[2023-04-25 23:37] LABS: HCO3 VBG 18 mmol/L (21-28); PCO2 VBG 29 mmHG (40-50); PO2 VBG 72.6 mmHG (25-47); pH VBG 7.395 (7.32-7.43)
[2023-04-26] VITALS (20 sets, daily range): BP systolic 95–139; BP diastolic 54–83; PULSE 68–84; RESP 16–22; TEMP 36.1–37.2; O2SAT 92–100
[2023-04-26 00:10] LABS: Troponin I* 0.16 ng/mL (0.01-0.04)
--- NOTE | 2023-04-26 00:32 | PM.EN ---
Chart Event Note Chart Event Note: Just before 11:00 p.m. the nurses told me that they got a critical phone call from the lab about a troponin of 0.16. This was elevated further from a troponin earlier today of 0.07. The troponin of 0.16 had been drawn at 5:47 p.m. and it is unclear why we did not get the results until close to 11:00 p.m.. The patient has been asymptomatic, without chest pain or dyspnea; he has been very comfortable. I obtained an EKG and a repeat troponin. The repeat troponin was the same and EKG was unremarkable. Patient likely has demand ischemia secondary to volume depletion and low hemoglobin. He had been given a blood transfusion overnight and hemoglobin has been stable at 8.4 today. Due to that I will not start any aspirin. Also there is concern for possibility of alcoholic liver disease, so I will not start a statin either. His blood pressures have been stable and within normal range today and so I will start low dose metoprolol.
[2023-04-26] MEDS: LACTATED RINGERS 1000 ML 1,000 ML 125 ML IV ×2 (00:53→08:42)
[2023-04-26] MEDS: METOPROLOL TARTRATE 25 MG TABLET 12.5 MG PO ×3 (00:53→21:49)
[2023-04-26] MEDS: NICOTINE 14 mg PATCH 1 PATCH TRANSDERMA (04:50)
[2023-04-26 05:21] LABS: Fecal Occult Blood* Positive (Negative)
[2023-04-26 06:34] LABS: HCO3 VBG 20 mmol/L (21-28); PCO2 VBG 34 mmHG (40-50); PO2 VBG 22.6 mmHG (25-47); pH VBG 7.386 (7.32-7.43)
[2023-04-26 06:43] LABS: Hematocrit 26.5 % (37.0-53.0); Hemoglobin* 8.2 gm/dL (13.5-17.5); Mean Corpuscular HGB Conc 31 gm/dL (32-36); Mean Corpuscular Hemoglobin 27 pg (26-34); Mean Corpuscular Volume 87 fL (80-100); Platelet Count* 99 K/uL (140-440); Red Blood Count 3.04 m/uL (4.30-5.90); White Blood Count* 3.51 K/uL (4.50-11.00)
[2023-04-26 06:46] LABS: Slide Review Reflex No
--- NOTE | 2023-04-26 06:48 | PC.NURSE ---
[id number]: Patient pleasant and cooperative. A&Ox3. C/o 04/07 BLE leg pain d/t peripheral neuropathy. Reposition for mild relief. Patient states no medications work. CIWAs unremarkable. BMx4. Weak. A2 to BSC/GB. Elevated Troponin 0.16, asymptomatic, EKG read NSR. See new orders.
[2023-04-26 07:01] LABS: Albumin* 2.4 g/dL (3.3-5.0); Chloride* 107 mmol/L (96-114)
[2023-04-26 07:02] LABS: Potassium* 3.9 mmol/L (3.6-5.1); Sodium* 130 mmol/L (135-149)
[2023-04-26 07:04] LABS: Alkaline Phosphatase* 140 U/L (40-150); Anion Gap 4 mEq/L (7-15); Aspartate Amino Transferase* 592 U/L (12-35); Bilirubin Total* 1.6 mg/dL (0.1-1.5); Carbon Dioxide* 19 mmol/L (20-32); Creatinine* 0.6 mg/dL (0.5-1.5); Est. Creatinine Clearance* 44.18; Estimated Glomerular Filt Rate 105 ml/min; Total Protein* 5.2 g/dL (6.0-8.3)
[2023-04-26 07:05] LABS: Alanine Aminotransferase* 112 U/L (4-50); Blood Urea Nitrogen* 10 mg/dL (7-30); Calcium* 7.3 mg/dL (8.4-10.6); Gamma Glutamyl Transpeptidase* 46 U/L (8-55); Glucose* 73 mg/dL (60-115)
[2023-04-26 07:21] LABS: Troponin I* 0.17 ng/mL (0.01-0.04)
[2023-04-26 08:13] LABS: Folate, RBC 173 ng/mL (>=366); Hematocrit (client supplied) 37.4 %
--- NOTE | 2023-04-26 08:20 | PM.IMPN1 ---
Progress Note: A&P Assessment and plan (1) Lactic acid acidosis: Problem details: -improving. lactate decreasing since admission. pH improving. -likely related to hypoperfusion, chronic liver disease, alcoholism -improving with blood, fluids, general support Status: Acute (2) Acute anemia: Problem details: +guiac. previous GI bleed? slow loss? reviewed EGD from spring 2022. needs colonoscopy. Vitamin B12 = 319. Folate pending Peripheral smear is pending. elevated retic count. BRANDEN negative s/p 2 units 09/18 Specimen: Duodenum Biopsy, Duodenum biopsy for iron deficiency anemia Final Diagnosis A) DUODENUM, BIOPSY: 1. Normal duodenal mucosa 2. Negative for celiac disease and other enteropathy He has had a bronchoscopy in May of 2022 an endoscopy in August of 2022. The reticulocyte count is helpful in narrowing the diagnosis of unexplained anemia. A high reticulocyte count typically indicates hemolysis; recovery from bleeding; removal of a bone marrow insult (drug or infection); or repletion of iron, folic acid, or vitamin B12. Genetic causes of hemolytic anemia may be associated with a positive family history and often have characteristic RBC morphologies on the blood smear that can be useful in guiding the evaluation. Status: Acute (3) Protein-calorie malnutrition, severe: Problem details: -principally from self neglect, weakness, chronic alcoholism -will do OT eval for cognitive issues -ammonia level for encephalopathy concern ordered. -consider MR brain Status: Acute (4) UTI (urinary tract infection): Problem details: s/p dose of zosyn in the ED and two doses of ceftriaxone on the floor. UC neg. no ascites. at this time little to no concern regarding SBP. Status: Acute (5) PAD (peripheral artery disease): Problem details: longstanding smoker. plavix. stents. c/o of chronic calf and sole pain. likely superimposed chronic peripheral neuropathy. 09/18 Procedure: 1. Left lower extremity angiogram lower extremity angiogram. 2. Angioplasty of proximal SFA, distal SFA, and above-knee popliteal artery with 6 mm balloon 3. Angio-Seal closure of right common femoral access site. 09/18 After overnight tPA infusion, there was resolution of the previous clot in the superficial femoral artery. The stents were patent. There was some mild stenoses noted in the distal SFA and popliteal artery. There is three-vessel runoff to the foot. Heparin was administered. The infusion catheter was removed over wire. A 6 x 60 mm angioplasty balloon was inserted and angioplasty was performed at multiple mild/moderate stenoses in the distal SFA and popliteal artery. The proxima lmost stent in the left SFA is about 1 cm below the bifurcation of the superficial femoral and profundofemoral arteries. There appeared to be a mild stenosis at that site as well. It was angioplastied with a 6 mm balloon. Repeat angiography demonstrated a good angiographic result at each site. The images were reviewed with Dr. Patton from vascular surgery. None of the lesions appeared critical enough that they needed additional stent placement. It is thought that the patient's stents thrombosed primarily because of medication noncompliance. Status: Acute (6) Tobacco abuse: Problem details: chronic Status: Acute (7) Alcohol use disorder: Problem details: chronic Right upper quadrant ultrasound: Moderate layering sludge in the gallbladder. Chronic liver disease. Calcified granulomas within the liver. Mild prominence of the portal triads. No ascites. MELD 3.0 = 15 on 04/25/23 (inr 1.25, NA 134, bili 1.9, creat 0.9, albumin 2.5) Status: Acute (8) Marijuana abuse, continuous: Problem details: chronic Status: Acute (9) Elevated d-dimer: Problem details: no PE could consider DVT workup in legs Status: Acute (10) History of DVT (deep vein thrombosis): Problem details: distant hx. not on AC. Status: Acute (11) Sick-euthyroid syndrome: Problem details: TSH>20, normal t4 Status: Acute (12) Demand ischemia: Problem details: trending trop. ecg. echo shows mild to moderate LV global dysfunction. on metoprolol. asp/plavix all held 2/2 GI bleeding/anemia Status: Acute Subjective Date Seen: 04/26/23 Interval history: Daily Progress Note - Hospital Medicine Day #: 2 CC: Admission for acute respiratory failure, protein calorie malnutrition, poor self-care, chronic liver disease, stigmata of chronic alcoholism OVERNIGHT UPDATES FROM STAFF & MED, LAB, IMAGING UPDATES improving. no appetite. c/o pain b/l legs. burning in nature. +guiac pH stable. vitals stable. lactate much improved hgb stable from transfusion pattern of chronic liver disease more notable: (plts 99, INR1.2, Na 130, elevated LFTS, low albumin) normal renal studies Right upper quadrant ultrasound: Moderate layering sludge in the gallbladder. Chronic liver disease. Calcified granulomas within the liver. Mild prominence of the portal triads. No ascites. CTA 1. No evidence of pulmonary embolism. 2. Few scattered patchy ground-glass opacities, likely representing an infectious/inflammatory process. 3. Focal multiple locules of gas in the right gastroesophageal groove, nonspecific may represent complex tracheal diverticulum. echo 04/25 (today) Final Impressions: 1. Normal left ventricular size, normal wall thickness, low normal global systolic function, calculated EF of 53 %. 2. Right ventricular cavity size is normal, global systolic RV function is normal. 3. Normal left atrium size. 4. The aortic valve is trileaflet and sclerotic, no stenosis and trivial regurgitation. 5. Severe tricuspid regurgitation with an estimated RVSP of 56 mmHg plus the RA pressure (i.e., comparible with severely elevated pulmonary pressures). 6. IVC geometry compatible with an intermediate estimated RA pressure (8 mmHg). whole body bone scan 04/15/23 IMPRESSION: 1. No convincing scintigraphic evidence for skeletal metastatic disease. 2. Scattered degenerative-type uptake as described. 3. Focal uptake in the sternum may be posttraumatic in nature. Linear uptake at L2 and L3 likely posttraumatic in nature as well. 4. Subtle uptake within the right 5th costochondral junction lateral left 4th rib may be posttraumatic in nature. lumbar spine 03/21 IMPRESSION: 1. Acute inferior endplate compression fracture at L3 with overlying Schmorl's node. 2. Suspect acute superior endplate Schmorl's node at L2. 3. Multilevel disc degeneration and facet hypertrophy as described above. This is greatest at L5-S1 where there is mild spinal canal stenosis and moderate bilateral neural foraminal stenosis. EGD 09/18 Impressions/Post-Op Diagnosis: - Z-line regular, 37 cm from the incisors. - 1 cm hiatal hernia. - Normal examined duodenum. Biopsied. Objective: Edentulous. Disheveled. Sallow. emaciated. Follows conversation but does not really initiate conversation. Does look more alert today, Answers in 1-2 word sentences or questions. Vitals: see above Lungs: Clear. Scattered rhonchi Scaphoid abdomen. No evidence of ascites. No evidence of telangctasia. Cardiac: S1S2. Atrophic legs, poor muscle mass. No edema. Disposition/Potential discharge - Likely to return to previous living situation. Spoke with sister bedside Today I spent 50minutes seeing the patient, reviewing Expanse and EPIC notes/diagnostics, discussing the care plan with our care time that includes social work, PT/OT, pharmacy, RT, senior care and documenting my impressions and plan in the medical record. Exam Const: Vital Signs, click to edit/add: Vital Signs - 24 hr 04/25/23 08:25 04/25/23 08:48 04/25/23 09:00 Temperature 97.6 F Pulse Rate Pulse Rate [Pulse Oximeter] 84 Respiratory Rate 18 18 Blood Pressure Blood Pressure [Le ft Arm] 132/76 Pulse Oximetry 99 99 Oxygen Delivery Me thod Room Air Room Air Room Air Oxygen Flow Rate 1.5 Fraction of Inspir ed Oxygen 21 21 04/25/23 10:00 04/25/23 11:00 04/25/23 11:00 Temperature 98.3 F 98.3 F Pulse Rate 83 Pulse Rate [Pulse Oximeter] 80 75 Respiratory Rate 18 22 Blood Pressure Blood Pressure [Le ft Arm] 132/76 144/70 H Pulse Oximetry 99 100 Oxygen Delivery Me thod Room Air Room Air Oxygen Flow Rate 1.5 Fraction of Inspir ed Oxygen 21 04/25/23 15:00 04/25/23 15:00 04/25/23 15:00 Temperature 98.0 F Pulse Rate 79 Pulse Rate [Pulse Oximeter] 80 80 Respiratory Rate 26 H 26 H Blood Pressure Blood Pressure [Le ft Arm] 133/67 Pulse Oximetry 100 Oxygen Delivery Me thod Room Air Oxygen Flow Rate Fraction of Inspir ed Oxygen 04/25/23 17:55 04/25/23 19:00 04/25/23 20:07 Temperature 97.7 F 98.3 F Pulse Rate 80 78 Pulse Rate [Pulse Oximeter] 80 Respiratory Rate 22 20 Blood Pressure 132/69 Blood Pressure [Le ft Arm] 138/80 Pulse Oximetry 100 100 Oxygen Delivery Me thod Room Air Oxygen Flow Rate Fraction of Inspir ed Oxygen 04/25/23 20:09 04/25/23 21:00 04/25/23 22:21 Temperature 98.3 F 98.1 F Pulse Rate Pulse Rate [Pulse Oximeter] 80 81 76 Respiratory Rate 20 22 20 Blood Pressure Blood Pressure [Le ft Arm] 138/80 120/88 133/67 Pulse Oximetry 100 91 100 Oxygen Delivery Me thod Room Air Room Air Room Air Oxygen Flow Rate Fraction of Inspir ed Oxygen 04/25/23 22:26 04/25/23 23:29 04/26/23 00:16 Temperature 98.1 F 98.1 F Pulse Rate 77 Pulse Rate [Pulse Oximeter] 76 79 Respiratory Rate 20 22 Blood Pressure Blood Pressure [Le ft Arm] 133/67 128/72 Pulse Oximetry 100 100 Oxygen Delivery Me thod Room Air Room Air Oxygen Flow Rate Fraction of Inspir ed Oxygen 04/26/23 02:00 04/26/23 03:00 04/26/23 03:27 Temperature 97.5 F L Pulse Rate 70 Pulse Rate [Pulse Oximeter] 70 Respiratory Rate 20 Blood Pressure Blood Pressure [Le ft Arm] 139/70 Pulse Oximetry 98 100 Oxygen Delivery Me thod Room Air Oxygen Flow Rate Fraction of Inspir ed Oxygen 04/26/23 04:00 04/26/23 04:00 04/26/23 06:11 Temperature 97.7 F Pulse Rate Pulse Rate [Pulse Oximeter] 68 68 73 Respiratory Rate 20 20 22 Blood Pressure Blood Pressure [Le ft Arm] 121/65 121/65 110/63 Pulse Oximetry 97 97 98 Oxygen Delivery Me thod Room Air Room Air Room Air Oxygen Flow Rate Fraction of Inspir ed Oxygen 04/26/23 07:45 Temperature 97.8 F Pulse Rate Pulse Rate [Pulse Oximeter] 73 Respiratory Rate 16 Blood Pressure Blood Pressure [Le ft Arm] 105/54 L Pulse Oximetry 92 Oxygen Delivery Me thod Room Air Oxygen Flow Rate Fraction of Inspir ed Oxygen Labs Labs: Laboratory Results - last 24 hr 04/24/23 04/24/23 04/25/23 22:20 22:49 01:30 WBC RBC Hgb Hct POC Hct 37.4 MCV MCH MCHC RDW Coeff of Pepe Plt Count Neut % (Auto) Lymph % (Auto) Pierce % (Auto) Eos % (Auto) Baso % (Auto) Neut # (Auto) Lymph # (Auto) Pierce # (Auto) Eos # (Auto) Baso # (Auto) Abs Immat Gran (auto) Imm/Tot Granulo (auto) INR ABG pH ABG pCO2 ABG pO2 ABG HCO3 ABG Total CO2 ABG O2 Saturation ABG Base Excess VBG pH VBG pCO2 VBG pO2 VBG HCO3 Carboxyhemoglobin Sodium Potassium Chloride Carbon Dioxide Anion Gap BUN Creatinine Estimated Creat Clear Estimated GFR Glucose Lactate Calcium Ionized Calcium Isha Phosphorus Magnesium Total Bilirubin Direct Bilirubin GGT 47 AST ALT Alkaline Phosphatase Ammonia Troponin I 0.02 C-Reactive Protein NT-Pro-B Natriuret Pep 1670 Total Protein Albumin Lipase RBC Folate Request 173 L TSH 21.000 H Free T4 1.45 T3 Stool Occult Blood Lab Acknowledgement Direct Antiglob Test Crossmatch ([facility]) See Detail 04/25/23 04/25/23 04/25/23 08:11 08:20 08:30 WBC 2.92 L RBC 3.06 L Hgb 8.4 L Hct 27.3 L POC Hct MCV 89 MCH 28 MCHC 31 L RDW Coeff of Pepe 16.2 H Plt Count 114 L Neut % (Auto) 80.1 H Lymph % (Auto) 15.8 L Pierce % (Auto) 3.1 Eos % (Auto) 0.0 Baso % (Auto) 0.0 Neut # (Auto) 2.30 Lymph # (Auto) 0.50 L Pierce # (Auto) 0.10 Eos # (Auto) 0.00 Baso # (Auto) 0.00 Abs Immat Gran (auto) 0.00 Imm/Tot Granulo (auto) 1.0 INR 1.25 H ABG pH 7.45 ABG pCO2 17 L* ABG pO2 108.0 H ABG HCO3 12 L ABG Total CO2 Not Reportable ABG O2 Saturation > 100 H ABG Base Excess -10.5 L VBG pH VBG pCO2 VBG pO2 VBG HCO3 Carboxyhemoglobin 2.0 Sodium 134 L Potassium 3.8 Chloride 112 Carbon Dioxide 12 L Anion Gap 10 BUN 19 Creatinine 0.9 Estimated Creat Clear 41.37 Estimated GFR 93 Glucose 78 Lactate 2.8 H Calcium 7.7 L Ionized Calcium Isha 1.11 Phosphorus 4.1 Magnesium 2.3 Total Bilirubin 1.9 H Direct Bilirubin 0.2 GGT 39 AST 131 H ALT 26 Alkaline Phosphatase 126 Ammonia Troponin I 0.07 H* C-Reactive Protein 2.9 H NT-Pro-B Natriuret Pep Total Protein 5.4 L Albumin 2.5 L Lipase 17 L RBC Folate Request TSH Free T4 Cancelled T3 Cancelled Stool Occult Blood Lab Acknowledgement Test Added Direct Antiglob Test Crossmatch ([facility]) 04/25/23 04/25/23 04/25/23 10:19 15:42 16:13 WBC RBC Hgb Hct POC Hct MCV MCH MCHC RDW Coeff of Pepe Plt Count Neut % (Auto) Lymph % (Auto) Pierce % (Auto) Eos % (Auto) Baso % (Auto) Neut # (Auto) Lymph # (Auto) Pierce # (Auto) Eos # (Auto) Baso # (Auto) Abs Immat Gran (auto) Imm/Tot Granulo (auto) INR ABG pH ABG pCO2 ABG pO2 ABG HCO3 ABG Total CO2 ABG O2 Saturation ABG Base Excess VBG pH VBG pCO2 VBG pO2 VBG HCO3 Carboxyhemoglobin Sodium Potassium Chloride Carbon Dioxide Anion Gap BUN Creatinine Estimated Creat Clear Estimated GFR Glucose Lactate Calcium Ionized Calcium Isha Phosphorus Magnesium Total Bilirubin Direct Bilirubin GGT AST ALT Alkaline Phosphatase Ammonia Troponin I C-Reactive Protein NT-Pro-B Natriuret Pep Total Protein Albumin Lipase RBC Folate Request TSH Free T4 T3 Stool Occult Blood Lab Acknowledgement Test Added New Spec Needed Test Added Direct Antiglob Test Crossmatch ([facility]) 04/25/23 04/25/23 04/25/23 17:47 22:20 23:28 WBC RBC Hgb 8.4 L Hct POC Hct MCV MCH MCHC RDW Coeff of Pepe Plt Count Neut % (Auto) Lymph % (Auto) Pierce % (Auto) Eos % (Auto) Baso % (Auto) Neut # (Auto) Lymph # (Auto) Pierce # (Auto) Eos # (Auto) Baso # (Auto) Abs Immat Gran (auto) Imm/Tot Granulo (auto) INR ABG pH ABG pCO2 ABG pO2 ABG HCO3 ABG Total CO2 ABG O2 Saturation ABG Base Excess VBG pH 7.395 VBG pCO2 29 L VBG pO2 72.6 H VBG HCO3 18 L Carboxyhemoglobin Sodium 132 L Potassium 4.1 Chloride 110 Carbon Dioxide 17 L Anion Gap 5 L BUN 16 Creatinine 0.7 Estimated Creat Clear 41.37 Estimated GFR 100 Glucose 90 Lactate Calcium 7.5 L Ionized Calcium Isha Phosphorus Magnesium Total Bilirubin Direct Bilirubin GGT AST ALT Alkaline Phosphatase Ammonia < 9.0 L Troponin I 0.16 H* 0.16 H* C-Reactive Protein NT-Pro-B Natriuret Pep Total Protein Albumin Lipase RBC Folate Request TSH Free T4 T3 Stool Occult Blood Lab Acknowledgement Direct Antiglob Test NEGATIVE NEGATIVE Crossmatch ([facility]) 04/26/23 04/26/23 05:10 05:55 WBC 3.51 L RBC 3.04 L Hgb 8.2 L Hct 26.5 L POC Hct MCV 87 MCH 27 MCHC 31 L RDW Coeff of Pepe Plt Count 99 L Neut % (Auto) Lymph % (Auto) Pierce % (Auto) Eos % (Auto) Baso % (Auto) Neut # (Auto) Lymph # (Auto) Pierce # (Auto) Eos # (Auto) Baso # (Auto) Abs Immat Gran (auto) Imm/Tot Granulo (auto) INR 1.20 H ABG pH ABG pCO2 ABG pO2 ABG HCO3 ABG Total CO2 ABG O2 Saturation ABG Base Excess VBG pH 7.386 VBG pCO2 34 L VBG pO2 22.6 L VBG HCO3 20 L Carboxyhemoglobin Sodium 130 L Potassium 3.9 Chloride 107 Carbon Dioxide 19 L Anion Gap 4 L BUN 10 Creatinine 0.6 Estimated Creat Clear 44.18 Estimated GFR 105 Glucose 73 Lactate Calcium 7.3 L Ionized Calcium Isha Phosphorus Magnesium 2.0 Total Bilirubin 1.6 H Direct Bilirubin GGT 46 AST 592 H ALT 112 H Alkaline Phosphatase 140 Ammonia Troponin I 0.17 H* C-Reactive Protein 7.0 H NT-Pro-B Natriuret Pep Total Protein 5.2 L Albumin 2.4 L Lipase RBC Folate Request TSH Free T4 T3 Stool Occult Blood Positive Lab Acknowledgement Direct Antiglob Test Crossmatch ([facility])
[2023-04-26] MEDS: cefTRIAXone 2 GM in 0.9 % SODIUM CHLORIDE Mini-bag 100 ML IVPB (09:08)
[2023-04-26] MEDS: MULTIVITAMIN/MINERALS 1 TABLET 1 TAB PO (09:16)
[2023-04-26] MEDS: FOLIC ACID 1 MG TABLET PO (09:16)
[2023-04-26] MEDS: GABAPENTIN 300 MG CAPSULE PO ×3 (12:28→21:49)
[2023-04-26] MEDS: THIAMINE 250 MG in 0.9 % SODIUM CHLORIDE 100 ml 100 ML 102 MG IVPB ×3 (12:29→21:49)
--- NOTE | 2023-04-26 13:45 | RESP.RT ---
Patient lying in bed on room air, SaO2 98%, breathing regular/easy, good clear voice. No complaint of SOB.
[2023-04-26] MEDS: 0.9 % SODIUM CHLORIDE 250 ml IV (17:00)
[2023-04-26 18:38] LABS: Total T3 69 ng/dL (80-200)
--- NOTE | 2023-04-26 19:05 | PC.NURSE ---
shift note: pt up 1/walker to recliner form meals. pt tolerates 1 hr in chair and request to go back to bed due to bilat l/e burning pain. PP faint. bilat calves with venous stasis changes. IV x2 patent. LS dim. Pt using IS 500-1000.
[2023-04-26] MEDS: ROSUVASTATIN CALCIUM 10 MG TABLET 40 MG PO (21:49)
[2023-04-26] MEDS: MELATONIN 3 MG TABLET PO (21:49)
[2023-04-26] MEDS: SODIUM CHLORIDE 0.9 % (FLUSH) 10 ML SYRINGE 5 ML IVF (21:50)
[2023-04-27] VITALS (9 sets, daily range): BP systolic 66–125; BP diastolic 49–65; PULSE 0–94; RESP 16–24; TEMP 36.3–37.7; O2SAT 97–99; BMI 16.0
[2023-04-27] MEDS: 0.9 % SODIUM CHLORIDE 250 ml 250 ML IV (00:12)
[2023-04-27] MEDS: NICOTINE 14 mg PATCH 1 PATCH TRANSDERMA (04:42)
--- NOTE | 2023-04-27 05:17 | PC.NURSE ---
[id number]: Patient pleasant and cooperative. Family at bedside and supportive. Increased appetite eating 75% tuna sandwich for supper. CIWAs unremarkable. Bean patent. Soft BP noted and reported to MD. 250mL bolus ordered and administered. BP improved but remain soft. Patient appeared to rest well during noc.
[2023-04-27 06:24] LABS: HCO3 VBG 21 mmol/L (21-28); PCO2 VBG 29 mmHG (40-50); PO2 VBG 75.4 mmHG (25-47); pH VBG 7.467 (7.32-7.43)
[2023-04-27 06:35] LABS: Mean Corpuscular HGB Conc 31 gm/dL (32-36); Mean Corpuscular Hemoglobin 27 pg (26-34); Mean Corpuscular Volume 87 fL (80-100); Platelet Count* 86 K/uL (140-440); Red Blood Count 2.86 m/uL (4.30-5.90); White Blood Count* 2.81 K/uL (4.50-11.00)
[2023-04-27 06:37] LABS: Hemoglobin* 7.7 gm/dL (13.5-17.5); Slide Review Reflex No
[2023-04-27 06:46] LABS: INR 1.16 (0.91-1.10); Prothrombin Time 15.5 Seconds
[2023-04-27 06:50] LABS: Albumin* 2.1 g/dL (3.3-5.0); Chloride* 103 mmol/L (96-114)
[2023-04-27 06:51] LABS: Sodium* 127 mmol/L (135-149)
[2023-04-27 06:53] LABS: Bilirubin Total* 1.1 mg/dL (0.1-1.5); Creatinine* 0.5 mg/dL (0.5-1.5); Estimated Glomerular Filt Rate 111 ml/min
[2023-04-27 06:54] LABS: Alanine Aminotransferase* 131 U/L (4-50); Alkaline Phosphatase* 145 U/L (40-150); Anion Gap 4 mEq/L (7-15); Aspartate Amino Transferase* 428 U/L (12-35); Blood Urea Nitrogen* 8 mg/dL (7-30); Calcium* 6.8 mg/dL (8.4-10.6); Carbon Dioxide* 20 mmol/L (20-32); Gamma Glutamyl Transpeptidase* 50 U/L (8-55); Glucose* 81 mg/dL (60-115); Magnesium* 2.2 mg/dL (1.5-2.6); Total Protein* 4.8 g/dL (6.0-8.3)
[2023-04-27 06:57] LABS: C Reactive Protein* 6.4 mg/dL (0.5-1.0)
[2023-04-27 07:20] LABS: Potassium* 2.7 mmol/L (3.6-5.1)
--- NOTE | 2023-04-27 07:20 | CRLHL7_ITS ---
For Patients: As a result of the Century Cures Act, medical imaging exams and procedure reports are released immediately into your electronic medical record. You may view this report before your referring provider. If you have questions, please contact your health care provider. INDICATION: Encephalopathy, alcoholism. TECHNIQUE: Multisequence multiplanar MRI of the head without contrast. COMPARISON: None available. FINDINGS: Scattered foci of diffusion restriction, for example in the right parasagittal prefrontal gyrus (series 5, image 47), right parietal lobe (series 5, image 45), left parietal lobe (series 5, image 42), left frontal periventricular white matter (series 5, image 41), and left temporo-occipital region (series 5, image 36). Scattered T2/FLAIR hyperintensities in the periventricular and subcortical white matter, nonspecific, but typical of mild chronic small vessel ischemic changes. Focal susceptibility artifact in the right temporal lobe (series 8, image 24) consistent with prior microhemorrhage. Moderate global parenchymal volume loss with ex-vacuo prominence of the supratentorial ventricles. Flow voids within the larger intracranial arteries are preserved. Normal calvarial bone marrow signal intensity. Unremarkable appearance of the orbits. Scattered paranasal sinus mucosal thickening and left greater than right mastoid effusions. IMPRESSION: 1. Multiple foci of diffusion restriction as above consistent with acute ischemia. Distribution raises concern for underlying embolic etiology. 2. Moderate global parenchymal volume loss and chronic small vessel ischemic changes. 3. Focal susceptibility artifact in the right temporal lobe consistent with sequela of prior micro hemorrhage. 4. Scattered paranasal sinus mucosal thickening and left greater than right mastoid effusions. Findings were discussed with Dr. Brice on 04/27/2023 at 2:56 p.m.. Dictated by Georgi Johnson MD @ 04/27/2023 3:01:36 PM (Electronically Signed)
[2023-04-27 07:21] LABS: Troponin I* 0.19 ng/mL (0.01-0.04)
--- NOTE | 2023-04-27 07:22 | P.IMPN_ITS ---
Progress Note: A&P Assessment and plan (1) Lactic acid acidosis: Problem details: -improving. lactate decreasing since admission. pH improving. -likely related to hypoperfusion, chronic liver disease, alcoholism -improving with blood, fluids, general support Status: Acute (2) Acute anemia: Problem details: sotero 5.1 - transfused 2 units --> 8.2 --> +guiac. slow GI Bleed, no hx of varices. has never had cscope. reviewed EGD from spring 2022. needs colonoscopy/egd. gen surgery feels GI should manage. Vitamin B12 = 319. Folate pending Peripheral smear is pending. elevated retic count. BRANDEN negative 09/18 Specimen: Duodenum Biopsy, Duodenum biopsy for iron deficiency anemia Final Diagnosis A) DUODENUM, BIOPSY: 1. Normal duodenal mucosa 2. Negative for celiac disease and other enteropathy He has had a bronchoscopy in May of 2022 an endoscopy in August of 2022. Status: Acute (3) Ischemic cerebrovascular accident (CVA): Problem details: stable neuro exam. embolic likely based on MR brain done 04/27 for encephalopathic presentation. current anemia GI bleed complicates. anticoagulation is complicated given acute anemia. Status: Acute (4) PAD (peripheral artery disease): Problem details: severe. arterial study 04/27 shows monophasic flow. absent in several bifurcations. longstanding smoker. plavix. stents. noncompliant. 09/18 Procedure: 1. Left lower extremity angiogram lower extremity angiogram. 2. Angioplasty of proximal SFA, distal SFA, and above-knee popliteal artery with 6 mm balloon 3. Angio-Seal closure of right common femoral access site. 09/18 After overnight tPA infusion, there was resolution of the previous clot in the superficial femoral artery. The stents were patent. There was some mild stenoses noted in the distal SFA and popliteal artery. There is three-vessel runoff to the foot. Heparin was administered. The infusion catheter was removed over wire. A 6 x 60 mm angioplasty balloon was inserted and angioplasty was performed at multiple mild/moderate stenoses in the distal SFA and popliteal artery. The proxima lmost stent in the left SFA is about 1 cm below the bifurcation of the superficial femoral and profundofemoral arteries. There appeared to be a mild stenosis at that site as well. It was angioplastied with a 6 mm balloon. Repeat angiography demonstrated a good angiographic result at each site. The images were reviewed with Dr. Patton from vascular surgery. None of the lesions appeared critical enough that they needed additional stent placement. It is thought that the patient's stents thrombosed primarily because of medication noncompliance. Status: Acute (5) Alcohol use disorder: Problem details: chronic Right upper quadrant ultrasound: Moderate layering sludge in the gallbladder. Chronic liver disease. Calcified granulomas within the liver. Mild prominence of the portal triads. No ascites. MELD 3.0 = 15 on 04/25/23 (inr 1.25, NA 134, bili 1.9, creat 0.9, albumin 2.5) Status: Acute (6) Demand ischemia: Problem details: trending trop. ecg. echo shows mild to moderate LV global dysfunction. on metoprolol. asp/plavix all held 2/2 GI bleeding/anemia Status: Acute (7) UTI (urinary tract infection): Problem details: s/p dose of zosyn in the ED and two doses of ceftriaxone on the floor. UC neg. no ascites. at this time little to no concern regarding SBP. Status: Acute (8) Protein-calorie malnutrition, severe: Problem details: -principally from self neglect, weakness, chronic alcoholism -will do OT eval for cognitive issues -ammonia level for encephalopathy concern ordered. -consider MR brain Status: Acute (9) Tobacco abuse: Problem details: chronic Status: Acute (10) Marijuana abuse, continuous: Problem details: chronic Status: Acute (11) Elevated d-dimer: Problem details: no PE could consider DVT workup in legs Status: Acute (12) History of DVT (deep vein thrombosis): Problem details: distant hx. not on AC. Status: Acute (13) Sick-euthyroid syndrome: Problem details: TSH>20, normal t4 Status: Acute Subjective Date Seen: 04/27/23 Interval history: Daily Progress Note - Hospital Medicine Day #: 3 CC: Admission for acute respiratory failure (resolved), protein calorie malnutrition w/assoc weakness, poor self-care, chronic liver disease, stigmata of chronic alcoholism OVERNIGHT UPDATES FROM STAFF & MED, LAB, IMAGING UPDATES more pain in his legs this morning, cool/purplish hue to extremities. More hypotensive. 105/60. 98/62. 95/58. Orthostatic positive. Afebrile Pulse in the 70s Respiratory rate 20 to 22 Pulse ox 97% room air. Weight has increased from 41.4-44.9 Becoming more neutropenic. 2.8 white blood cell. No differential today Hemoglobin down to 7.7. Lary negative. Platelets down to 86 INR 1.16 BPH stable mildly alkalotic Potassium is dropped to 2.7, sodium is down to 127. Renal function looks intact. Troponin has been abnormal but essentially flat Albumin is dropping C reactive protein is about the same Total protein is dropping Blood cultures and urine culture negative Arterial study 04/27 Severe bilateral atherosclerotic disease. Absent flow within the left peroneal artery, anterior tibial artery and dorsalis pedis artery. Absent flow within the right anterior tibial artery. Monophasic flow throughout the arterial runoff secondary to severe inflow disease. Brain MR 04/27 1. Multiple foci of diffusion restriction as above consistent with acute ischemia. Distribution raises concern for underlying embolic etiology. 2. Moderate global parenchymal volume loss and chronic small vessel ischemic changes. 3. Focal susceptibility artifact in the right temporal lobe consistent with sequela of prior micro hemorrhage. 4. Scattered paranasal sinus mucosal thickening and left greater than right mastoid effusions. Right upper quadrant ultrasound: Moderate layering sludge in the gallbladder. Chronic liver disease. Calcified granulomas within the liver. Mild prominence of the portal triads. No ascites. CTA 1. No evidence of pulmonary embolism. 2. Few scattered patchy ground-glass opacities, likely representing an infectious/inflammatory process. 3. Focal multiple locules of gas in the right gastroesophageal groove, nonspecific may represent complex tracheal diverticulum. echo 04/25 Final Impressions: 1. Normal left ventricular size, normal wall thickness, low normal global systolic function, calculated EF of 53 %. 2. Right ventricular cavity size is normal, global systolic RV function is normal. 3. Normal left atrium size. 4. The aortic valve is trileaflet and sclerotic, no stenosis and trivial regurgitation. 5. Severe tricuspid regurgitation with an estimated RVSP of 56 mmHg plus the RA pressure (i.e., comparible with severely elevated pulmonary pressures). 6. IVC geometry compatible with an intermediate estimated RA pressure (8 mmHg). whole body bone scan 04/15/23 IMPRESSION: 1. No convincing scintigraphic evidence for skeletal metastatic disease. 2. Scattered degenerative-type uptake as described. 3. Focal uptake in the sternum may be posttraumatic in nature. Linear uptake at L2 and L3 likely posttraumatic in nature as well. 4. Subtle uptake within the right 5th costochondral junction lateral left 4th rib may be posttraumatic in nature. lumbar spine 03/21 IMPRESSION: 1. Acute inferior endplate compression fracture at L3 with overlying Schmorl's node. 2. Suspect acute superior endplate Schmorl's node at L2. 3. Multilevel disc degeneration and facet hypertrophy as described above. This is greatest at L5-S1 where there is mild spinal canal stenosis and moderate bilateral neural foraminal stenosis. EGD 09/18 Impressions/Post-Op Diagnosis: - Z-line regular, 37 cm from the incisors. - 1 cm hiatal hernia. - Normal examined duodenum. Biopsied. Objective: Edentulous. Disheveled. Sallow. emaciated. Follows conversation but does not really initiate conversation. Does look more alert today, Answers in 1-2 word sentences or questions. Vitals: see above Lungs: Clear. Scattered rhonchi Scaphoid abdomen. No evidence of ascites. No evidence of telangctasia. Cardiac: S1S2. Atrophic legs, poor muscle mass, cooler than yesterday, purple hue neuro exam: nonfocal, sluggish but not lateralizing. Disposition/Potential discharge - Transfer to [place] Today I spent 50minutes seeing the patient, reviewing Expanse and EPIC notes/diagnostics, discussing the care plan with our care time that includes social work, PT/OT, pharmacy, RT, assisted and documenting my impressions and plan in the medical record. Exam Const: Vital Signs, click to edit/add: Vital Signs - 24 hr 04/26/23 07:45 04/26/23 08:00 04/26/23 11:00 Temperature 97.8 F 97.8 F 96.9 F L Pulse Rate Pulse Rate [Pulse Oximeter] 73 73 70 Pulse Rate [orthos tatic lying] Pulse Rate [orthos tatic sitting] Pulse Rate [orthos tatic standing] Respiratory Rate 16 16 16 Blood Pressure [Le ft Arm] 105/54 L 105/54 L 116/60 Blood Pressure [or thostatic lying] Blood Pressure [or thostatic sitting] Blood Pressure [or thostatic standing ] Pulse Oximetry 92 92 100 Oxygen Delivery Me thod Room Air Room Air Room Air 04/26/23 11:50 04/26/23 12:00 04/26/23 12:04 Temperature 96.9 F L Pulse Rate 74 Pulse Rate [Pulse Oximeter] 70 Pulse Rate [orthos tatic lying] Pulse Rate [orthos tatic sitting] Pulse Rate [orthos tatic standing] Respiratory Rate 18 16 Blood Pressure [Le ft Arm] 116/60 Blood Pressure [or thostatic lying] Blood Pressure [or thostatic sitting] Blood Pressure [or thostatic standing ] Pulse Oximetry 98 100 Oxygen Delivery Wy thod Room Air Room Air 04/26/23 15:00 04/26/23 15:00 04/26/23 16:00 Temperature 96.9 F L 96.9 F L Pulse Rate Pulse Rate [Pulse Oximeter] 76 76 76 Pulse Rate [orthos tatic lying] Pulse Rate [orthos tatic sitting] Pulse Rate [orthos tatic standing] Respiratory Rate 16 16 16 Blood Pressure [Le ft Arm] 125/83 125/83 Blood Pressure [or thostatic lying] Blood Pressure [or thostatic sitting] Blood Pressure [or thostatic standing ] Pulse Oximetry 100 100 Oxygen Delivery Wy thod Room Air Room Air 04/26/23 18:00 04/26/23 20:00 04/26/23 20:35 Temperature 99.0 F 99.0 F Pulse Rate 79 Pulse Rate [Pulse Oximeter] 84 84 Pulse Rate [orthos tatic lying] Pulse Rate [orthos tatic sitting] Pulse Rate [orthos tatic standing] Respiratory Rate 18 18 Blood Pressure [Le ft Arm] 99/59 L 99/59 L Blood Pressure [or thostatic lying] Blood Pressure [or thostatic sitting] Blood Pressure [or thostatic standing ] Pulse Oximetry 100 100 Oxygen Delivery Wy thod Room Air Room Air 04/26/23 23:00 04/26/23 23:14 04/26/23 23:15 Temperature 98.1 F 98.1 F Pulse Rate 83 Pulse Rate [Pulse Oximeter] 74 74 Pulse Rate [orthos tatic lying] Pulse Rate [orthos tatic sitting] Pulse Rate [orthos tatic standing] Respiratory Rate 22 22 Blood Pressure [Le ft Arm] 95/58 L 95/58 L Blood Pressure [or thostatic lying] Blood Pressure [or thostatic sitting] Blood Pressure [or thostatic standing ] Pulse Oximetry 98 98 Oxygen Delivery Wy thod Room Air Room Air 04/27/23 03:00 04/27/23 04:00 04/27/23 04:37 Temperature 98.1 F 98.1 F Pulse Rate Pulse Rate [Pulse Oximeter] 75 75 Pulse Rate [orthos tatic lying] Pulse Rate [orthos tatic sitting] Pulse Rate [orthos tatic standing] Respiratory Rate 22 22 Blood Pressure [Le ft Arm] 98/62 98/62 Blood Pressure [or thostatic lying] Blood Pressure [or thostatic sitting] Blood Pressure [or thostatic standing ] Pulse Oximetry 98 97 97 Oxygen Delivery Me thod Room Air Room Air 04/27/23 06:00 Temperature Pulse Rate Pulse Rate [Pulse Oximeter] Pulse Rate [orthos tatic lying] 81 Pulse Rate [orthos tatic sitting] 89 Pulse Rate [orthos tatic standing] 94 Respiratory Rate Blood Pressure [Le ft Arm] Blood Pressure [or thostatic lying] 105/60 Blood Pressure [or thostatic sitting] 66/49 L Blood Pressure [or thostatic standing ] 75/52 L Pulse Oximetry Oxygen Delivery Me thod Labs Labs: Laboratory Results - last 24 hr 04/24/23 04/25/23 04/26/23 22:20 01:30 05:55 WBC RBC Hgb Hct POC Hct 37.4 MCV MCH MCHC Plt Count INR VBG pH VBG pCO2 VBG pO2 VBG HCO3 Sodium Potassium Chloride Carbon Dioxide Anion Gap BUN Creatinine Estimated Creat Clear Estimated GFR Glucose Lactate 2.0 H Calcium Magnesium Total Bilirubin GGT AST ALT Alkaline Phosphatase Troponin I 0.17 H* C-Reactive Protein Total Protein Albumin RBC Folate Request 173 L T3 69 L Lab Acknowledgement 04/26/23 04/27/23 08:11 05:37 WBC 2.81 L RBC 2.86 L Hgb 7.7 L* Hct 25.0 L POC Hct MCV 87 MCH 27 MCHC 31 L Plt Count 86 L INR 1.16 H VBG pH 7.467 H VBG pCO2 29 L VBG pO2 75.4 H VBG HCO3 21 Sodium 127 L Potassium 2.7 L* Chloride 103 Carbon Dioxide 20 Anion Gap 4 L BUN 8 Creatinine 0.5 Estimated Creat Clear 45.00 Estimated GFR 111 Glucose 81 Lactate Calcium 6.8 L Magnesium 2.2 Total Bilirubin 1.1 GGT 50 AST 428 H ALT 131 H Alkaline Phosphatase 145 Troponin I 0.19 H* C-Reactive Protein 6.4 H Total Protein 4.8 L Albumin 2.1 L RBC Folate Request T3 Lab Acknowledgement Test Added
[2023-04-27] MEDS: POTASSIUM CHLORIDE 10 MEQ/100 ML PIGGYBACK 100 MEQ IVPB ×4 (09:22→15:11)
[2023-04-27] MEDS: ALBUMIN HUMAN 25% 25 GM/100 ML VIAL IVPB (09:22)
[2023-04-27] MEDS: POTASSIUM BICARB 25 MEQ EFFERVESCENT TAB 50 MEQ PO ×2 (09:23→18:59)
[2023-04-27] MEDS: FOLIC ACID 1 MG TABLET PO (09:23)
[2023-04-27] MEDS: METOPROLOL TARTRATE 25 MG TABLET 12.5 MG PO (09:23)
[2023-04-27] MEDS: GABAPENTIN 300 MG CAPSULE PO ×2 (09:23→15:12)
[2023-04-27] MEDS: MULTIVITAMIN/MINERALS 1 TABLET 1 TAB PO (09:24)
[2023-04-27] MEDS: SODIUM CHLORIDE 0.9 % (FLUSH) 10 ML SYRINGE 5 ML IVF (09:24)
[2023-04-27] MEDS: THIAMINE 250 MG in 0.9 % SODIUM CHLORIDE 100 ml 100 ML 102.5 MG IVPB ×2 (10:33→15:13)
[2023-04-27] MEDS: bisacodyL 5 MG TABLET DR 10 MG PO (11:42)
--- NOTE | 2023-04-27 16:11 | P.DS_ITS ---
DS: Providers Provider Date Seen: 04/27/23 Date of admission: 04/25/23 03:50 Primary care physician: Fly Drummond MD Admitting Clinician: Prudence Dominguez MD Consults: 04/25/23 03:49 Consult to Physical Therapy [CONS] Routine Comment: Reason(s) for PT Consult:: Evaluate and Treat Any Restrictions?:: No Restrictions Consult to Respiratory Therapy [CONS] Routine Comment: Reason(s) for RT Consult:: Consult 04/25/23 03:52 Consult to Occupational Therapy [CONS] Routine Comment: Reason(s) for OT Consult:: Evaluate and Treat Any Restrictions?:: No Restrictions 04/25/23 06:55 Consult to Fireworks Inspector [CONS] Routine Comment: Reason for Consult:: Psycho-Social Needs 04/25/23 07:02 Consult to Occupational Therapy [CONS] Routine Comment: Reason(s) for OT Consult:: Difficulty Managing ADLs Any Restrictions?:: Unknown Consult to Physical Therapy [CONS] Routine Comment: Reason(s) for PT Consult:: Weakness Any Restrictions?:: Unknown 04/26/23 09:08 Consult to Occupational Therapy [CONS] Routine Comment: Reason(s) for OT Consult:: Difficulty Managing ADLs Any Restrictions?:: No Restrictions Consult to Physical Therapy [CONS] Routine Comment: Reason(s) for PT Consult:: Evaluate and Treat Any Restrictions?:: No Restrictions 04/27/23 07:31 Consult to Nutrition [CONS] Routine Comment: Reason for consult:: Nutritional Consult Attending Physician on discharge: Ebony Brice MD [facility] Date of Discharge: 04/27/23 DS: Diagnosis Discharge Diagnosis (1) Ischemic cerebrovascular accident (CVA): Status: Acute Problem details: stable neuro exam. embolic likely based on MR brain done 04/27 for encephalopathic presentation. current anemia GI bleed complicates. anticoagulation is complicated given acute anemia. (2) PAD (peripheral artery disease): Status: Acute Problem details: severe. arterial study 04/27 shows monophasic flow. absent in several bifurcations. longstanding smoker. plavix. stents. noncompliant. 09/18 Procedure: 1. Left lower extremity angiogram lower extremity angiogram. 2. Angioplasty of proximal SFA, distal SFA, and above-knee popliteal artery with 6 mm balloon 3. Angio-Seal closure of right common femoral access site. 09/18 After overnight tPA infusion, there was resolution of the previous clot in the superficial femoral artery. The stents were patent. There was some mild stenoses noted in the distal SFA and popliteal artery. There is three-vessel runoff to the foot. Heparin was administered. The infusion catheter was removed over wire. A 6 x 60 mm angioplasty balloon was inserted and angioplasty was performed at multiple mild/moderate stenoses in the distal SFA and popliteal artery. The proxima lmost stent in the left SFA is about 1 cm below the bifurcation of the superficial femoral and profundofemoral arteries. There appeared to be a mild stenosis at that site as well. It was angioplastied with a 6 mm balloon. Repeat angiography demonstrated a good angiographic result at each site. The images were reviewed with Dr. Patton from vascular surgery. None of the lesions appeared critical enough that they needed additional stent placement. It is thought that the patient's stents thrombosed primarily because of medication noncompliance. (3) Acute anemia: Status: Acute Problem details: sotero 5.1 - transfused 2 units --> 8.2 --> +guiac. slow GI Bleed, no hx of varices. has never had cscope. reviewed EGD from spring 2022. needs colonoscopy/egd. gen surgery feels GI should manage. Vitamin B12 = 319. Folate pending Peripheral smear is pending. elevated retic count. BRANDEN negative 09/18 Specimen: Duodenum Biopsy, Duodenum biopsy for iron deficiency anemia Final Diagnosis A) DUODENUM, BIOPSY: 1. Normal duodenal mucosa 2. Negative for celiac disease and other enteropathy He has had a bronchoscopy in May of 2022 an endoscopy in August of 2022. (4) Alcohol use disorder: Status: Acute Problem details: chronic Right upper quadrant ultrasound: Moderate layering sludge in the gallbladder. Chronic liver disease. Calcified granulomas within the liver. Mild prominence of the portal triads. No ascites. MELD 3.0 = 15 on 04/25/23 (inr 1.25, NA 134, bili 1.9, creat 0.9, albumin 2.5) (5) Lactic acid acidosis: Status: Acute Problem details: -improving. lactate decreasing since admission. pH improving. -likely related to hypoperfusion, chronic liver disease, alcoholism -improving with blood, fluids, general support (6) Protein-calorie malnutrition, severe: Status: Acute Problem details: -principally from self neglect, weakness, chronic alcoholism -will do OT eval for cognitive issues -ammonia level for encephalopathy concern ordered. -consider MR brain (7) Sick-euthyroid syndrome: Status: Acute Problem details: TSH>20, normal t4 DS: Summary Hospital Course Hospital Course: HOSPITALIST TRANSFER SUMMARY ATTENDING PHYSICIAN: Ebony Brice MD REASON FOR TRANSFER evolving ischemic embolic CVAs, acute. Ongoing GI bleed. Limb threatening PAD BRIEF HOSPITAL COURSE: Patient was admitted here on 04/25. Transfer to [place] on 04/27. See above for medical issues outlined in order of severity. Initially admitted for acute GI bleed and severe lactic acidosis. He was transfused and stabilized. Stigmata of alcoholic liver disease was noted. Meld 3.015. Mildly encephalopathic. Developed worsening limb pain and worsening exam to bilateral lower extremities. Monophasic flow noted in his bilateral lower extremities. MRI brain shows evolving subacute ischemic strokes. Hemoglobin dropping after transfusion. Our general surgeon would like GI to man age possible upper and lower GI bleeding sources. Discuss this case with vascular and ICU at [place]. They are accepting care on the afternoon of 04/27/2023. SERVICES NOT AVAILABLE HERE THAT THIS PATIENT NEEDS: ICU: Vascular, neuro, GI. ACCEPTING PHYSICIAN/SERVICE/LOCATION: Dr. Hardin. [facility]. MEDICATIONS AT TIME OF TRANSFER: See Mar. DRIPS/LINES: Urinary catheter VITAL SIGN, MEDICATION, LAB/MICRO, IMAGING SUMMARY (full details available in account tabs or by records request) See note from 04/27 REVIEW OF SYSTEMS Unchanged. PHYSICAL EXAM: CONSTITUTIONAL: See note from 04/27 VITAL SIGNS: see record. Exam unchanged from earlier with notable exceptions: DISPOSITION: Transfer to ICU, [facility] Time spent on discharge >30 minutes. This includes speaking with accepting physician; family/patient and coordinating meds/drips for transfer Status at Discharge Functional status at discharge: uses cane/walker Overall status at discharge: patient is not back to baseline Time Spent with Patient Time attestation: Total time spent providing and/or coordinating discharge services: Time spent: Greater than 30 minutes Exam Const: Vital Signs, click to edit/add: Vital Signs - 24 hr 04/26/23 18:00 04/26/23 20:00 04/26/23 20:35 Temperature 99.0 F 99.0 F Pulse Rate 79 Pulse Rate [Pulse Oximeter] 84 84 Pulse Rate [orthos tatic lying] Pulse Rate [orthos tatic sitting] Pulse Rate [orthos tatic standing] Respiratory Rate 18 18 Blood Pressure [Le ft Arm] 99/59 L 99/59 L Blood Pressure [Ri ght Arm] Blood Pressure [or thostatic lying] Blood Pressure [or thostatic sitting] Blood Pressure [or thostatic standing ] Pulse Oximetry 100 100 Oxygen Delivery Pa thod Room Air Room Air 04/26/23 23:00 04/26/23 23:14 04/26/23 23:15 Temperature 98.1 F 98.1 F Pulse Rate 83 Pulse Rate [Pulse Oximeter] 74 74 Pulse Rate [orthos tatic lying] Pulse Rate [orthos tatic sitting] Pulse Rate [orthos tatic standing] Respiratory Rate 22 22 Blood Pressure [Le ft Arm] 95/58 L 95/58 L Blood Pressure [Ri ght Arm] Blood Pressure [or thostatic lying] Blood Pressure [or thostatic sitting] Blood Pressure [or thostatic standing ] Pulse Oximetry 98 98 Oxygen Delivery Pa thod Room Air Room Air 04/27/23 03:00 04/27/23 04:00 04/27/23 04:37 Temperature 98.1 F 98.1 F Pulse Rate Pulse Rate [Pulse Oximeter] 75 75 Pulse Rate [orthos tatic lying] Pulse Rate [orthos tatic sitting] Pulse Rate [orthos tatic standing] Respiratory Rate 22 22 Blood Pressure [Le ft Arm] 98/62 98/62 Blood Pressure [Ri ght Arm] Blood Pressure [or thostatic lying] Blood Pressure [or thostatic sitting] Blood Pressure [or thostatic standing ] Pulse Oximetry 98 97 97 Oxygen Delivery Pa thod Room Air Room Air 04/27/23 06:00 04/27/23 07:00 04/27/23 07:00 Temperature 99.9 F H Pulse Rate 77 Pulse Rate [Pulse Oximeter] 76 Pulse Rate [orthos tatic lying] 81 Pulse Rate [orthos tatic sitting] 89 Pulse Rate [orthos tatic standing] 94 Respiratory Rate 22 Blood Pressure [Le ft Arm] Blood Pressure [Ri ght Arm] 99/63 Blood Pressure [or thostatic lying] 105/60 Blood Pressure [or thostatic sitting] 66/49 L Blood Pressure [or thostatic standing ] 75/52 L Pulse Oximetry 98 Oxygen Delivery Me thod Room Air 04/27/23 07:00 04/27/23 11:00 04/27/23 14:25 Temperature 97.3 F L Pulse Rate Pulse Rate [Pulse Oximeter] 77 79 Pulse Rate [orthos tatic lying] Pulse Rate [orthos tatic sitting] Pulse Rate [orthos tatic standing] Respiratory Rate 22 20 Blood Pressure [Le ft Arm] Blood Pressure [Ri ght Arm] 114/65 Blood Pressure [or thostatic lying] Blood Pressure [or thostatic sitting] Blood Pressure [or thostatic standing ] Pulse Oximetry 97 98 Oxygen Delivery Pa thod Room Air Room Air DS: Data Data Completed and Pending Labs on day of discharge: Labs from last 24 hours 04/27/23 04/24/23 05:37 22:20 WBC 2.81 L RBC 2.86 L Hgb 7.7 L* Hct 25.0 L MCV 87 MCH 27 MCHC 31 L Plt Count 86 L INR 1.16 H VBG pH 7.467 H VBG pCO2 29 L VBG pO2 75.4 H VBG HCO3 21 Sodium 127 L Potassium 2.7 L* Chloride 103 Carbon Dioxide 20 Anion Gap 4 L BUN 8 Creatinine 0.5 Estimated Creat Clear 45.00 Estimated GFR 111 Glucose 81 Calcium 6.8 L Magnesium 2.2 Total Bilirubin 1.1 GGT 50 AST 428 H ALT 131 H Alkaline Phosphatase 145 Troponin I 0.19 H* C-Reactive Protein 6.4 H Total Protein 4.8 L Albumin 2.1 L T3 69 L Preliminary micro results at discharge 04/24/23 22:20 Blood Culture - Preliminary Blood NO GROWTH AFTER 48 HOURS 04/24/23 22:20 Blood Culture - Preliminary Blood NO GROWTH AFTER 48 HOURS Discharge Plan Discharge Disposition: [facility] Date of Admission: 04/25/23 03:50 Attending Provider on Discharge: Ebony Brice Primary Care Provider: Fly Drummond Condition: Guarded Discharge Orders: Transfer of Care to Other Hospital (ORDER); Ordered 04/27/23 Ordered By: Ebony Brice Oxygen: No Urinary Catheter: Yes Services not available here: ICU: vascular, neuro, GI
--- NOTE | 2023-04-27 18:00 | CRLHL7_ITS ---
For Patients: As a result of the Century Cures Act, medical imaging exams and procedure reports are released immediately into your electronic medical record. You may view this report before your referring provider. If you have questions, please contact your health care provider. INDICATION: ISCHEMIC LIMB CONCERN TECHNIQUE: Bilateral lower extremity arterial duplex ultrasound with color Doppler and spectral waveform analysis. COMPARISON: CT abdomen and pelvis 04/25/2023 FINDINGS: Multiple sonographic montoya-scale images demonstrate extensive atherosclerotic plaque in both lower extremities. Right leg: Monophasic flow present without elevated velocities. Absent flow in the right KRISTAN. Left leg: Monophasic flow is present throughout. No flow detected in the peroneal artery, KRISTAN and DPA. IMPRESSION: Severe bilateral atherosclerotic disease. Absent flow within the left peroneal artery, anterior tibial artery and dorsalis pedis artery. Absent flow within the right anterior tibial artery. Monophasic flow throughout the arterial runoff secondary to severe inflow disease. Dictated by Jase Naqvi MD @ 04/27/2023 3:07:48 PM (Electronically Signed)
--- NOTE | 2023-04-27 19:02 | PC.NURSE ---
Nursing Care Hours: [id number] Pt this shift calm and cooperative with cares, oriented and fatigued. C/o bilat calf pain with dorsiflexion. Otherwise c/o numbness to bilat feet. Observed L leg dark purple and cold up to just below the knee, non blanchable skin, pedal pulse absent with palpation and Doppler. L leg also shows mottling from mid calf to just above knee. R leg is discolored with some darker and forensic science technician areas. Leg is cold up to just below the knee, blanchable but blood return >3 seconds, pedal pulse absent with palpation and Doppler. Pt unable to wiggle toes or pump bilat feet. Hospitalist made aware and orders placed. Pt able to pivot transfer to [facility]. 3 moderate loose BM's. Bean patent, u/o clear orange. Pressures WNL after albumin infusion. Encouraged clear liquid diet, brought ensure and chicken broth, but pt only had sips. Pt ready for transfer, nurse to nurse given over the phone.
--- NOTE | 2023-04-27 21:14 | PC.NURSE ---
Pt discharge 2029. VSS. Via Stretcher with EMS. Awake and coherent. Bean in place
== END 2023-04-27 20:30 | disposition short-term general hospital (02) | DRG 377 ==
LOC: ED 04-25 02:34 → MEDSURG 04-25 03:48
PROVIDERS: Family Medicine; Internal Medicine; Admitting Provider Family Medicine; Emergency Provider Internal Medicine; PCP Family Medicine; Visit Provider Family Medicine
DX: K92.2 Gastrointestinal hemorrhage, unspecified (principal); E43 Unspecified severe protein-calorie malnutrition; I63.40 Cerebral infarction due to embolism of unspecified cerebral artery; J96.01 Acute respiratory failure with hypoxia; E87.21 Acute metabolic acidosis; G93.49 Other encephalopathy; D62 Acute posthemorrhagic anemia; Z68.1 Body mass index [BMI] 19.9 or less, adult; I24.89 Other forms of acute ischemic heart disease; F17.210 Nicotine dependence, cigarettes, uncomplicated; Z79.01 Long term (current) use of anticoagulants; K70.30 Alcoholic cirrhosis of liver without ascites; I69.30 Unspecified sequelae of cerebral infarction; I70.223 Atherosclerosis of native arteries of extremities with rest pain, bilateral legs; G62.9 Polyneuropathy, unspecified; F10.20 Alcohol dependence, uncomplicated; K70.9 Alcoholic liver disease, unspecified; K75.3 Granulomatous hepatitis, not elsewhere classified; E83.51 Hypocalcemia; I25.10 Atherosclerotic heart disease of native coronary artery without angina pectoris; Z79.02 Long term (current) use of antithrombotics/antiplatelets; Z79.82 Long term (current) use of aspirin; F12.10 Cannabis abuse, uncomplicated; E07.81 Sick-euthyroid syndrome; I07.1 Rheumatic tricuspid insufficiency; E78.00 Pure hypercholesterolemia, unspecified; Z86.718 Personal history of other venous thrombosis and embolism
CPT/HCPCS: 36415; 36430; 36600; 70551; 71045; 71275; 74177; 76705; 80048; 80053; 80069; 80076; 80306; 81003; 81015; 82077; 82140; 82270; 82330; 82607; 82728; 82747; 82803; 82977; 83036; 83540; 83550; 83605; 83690; 83735; 83880; 84100; 84439; 84443; 84480; 84484; 85018; 85025; 85027; 85045; 85379; 85610; 86140; 86850; 86880; 86900; 86901; 86922; 87040; 87086; 87631; 93005; 93306; 93926; 94640; 94761; 97110; 97162; 97165; 97530; 97535; 99284; 99291; 99292; A9153; A9270; C9113; J0610; J0696; J2543; J3411; J3480; J7030; J7050; J7120; P9016; P9047; Q9967; S4990

== ENCOUNTER 2023-04-27 20:20 | Outpatient (CLI) | payer MEDICARE, MEDICAID, SELFPAY | END 2023-04-27 20:21 | disposition home or self-care (01) | LOC: AMB 05-02 14:10 | PROVIDERS: PCP Family Medicine; Visit Provider Family Medicine | DX: I63.9 Cerebral infarction, unspecified (principal); I24.89 Other forms of acute ischemic heart disease; D64.9 Anemia, unspecified | CPT/HCPCS: A0425; A0427 ==

== ENCOUNTER 2024-02-01 10:12 | Outpatient (RCR) | payer BC, SELFPAY | END 2025-01-27 08:16 | disposition home or self-care (01) | LOC: MOW 10:12 | PROVIDERS: PCP Family Medicine; Visit Provider Family Medicine | DX: Z76.0 Encounter for issue of repeat prescription (principal) | CPT/HCPCS: S5170 ==